=== PATIENT | female | born 1945 | race Caucasian/White ===

== ENCOUNTER 2016-06-25 04:15 | Inpatient (IN) | payer OTHER, MEDICARE ==
[2016-06-25] VITALS (20 sets, daily range): BP systolic 129–214; BP diastolic 70–100; PULSE 86–128; RESP 16–37; TEMP 98.5; O2SAT 82–100
[~2016-06-25] VITALS: Ht 170.2 cm; Wt 81.6 kg
[~2016-06-25 04:15] MED LIST: ASPI81TA11 PO; CLON0.1T PO; ESTR1.25 PO; METO25TA3 PO; NIFE15TA PO; PRED2.5T PO; UMEC1AER INH
[2016-06-25] MEDS ORDERED: SODIUM CHLORIDE 0.9% FLUSH 10 ML FLUSH IVF PRN (04:30)
[2016-06-25] MEDS: RESP: ALBUTEROL 2.5 MG/IPRATROPIUM 0.5 MG NEB (SCH) INH (04:41)
[2016-06-25 05:06] LABS: AUTOMATED NEUTROPHIL # 8.6 TH/MM3 (1.8-7.7); BASOPHIL # 0.2 TH/MM3 (0-0.2); BASOPHIL % 1.4 % (0.0-2.0); EOSINOPHIL # 0.1 TH/MM3 (0-0.4); EOSINOPHIL % 0.4 % (0.0-4.0); HEMATOCRIT 48.1 % (35.0-46.0); HEMO FLAGS DIFF FINAL; LYMPH % 19.2 % (9.0-44.0); LYMPHOCYTE # 2.4 TH/MM3 (1.0-4.8); MEAN CELL VOLUME 91.9 FL (80.0-100.0); MEAN CORPUSCULAR HEMOGLOBIN 31.7 PG (27.0-34.0); MEAN CORPUSCULAR HGB CONC 34.5 % (32.0-36.0); MONO % 9.1 % (0.0-8.0); NEUT % 69.9 % (16.0-70.0); PLATELET COUNT 266 TH/MM3 (150-450); RED BLOOD COUNT 5.23 MIL/MM3 (4.00-5.30); RED CELL DISTRIBUTION WIDTH 13.7 % (11.6-17.2); WHITE BLOOD COUNT 12.3 TH/MM3 (4.0-11.0)
[2016-06-25 05:12] LABS: APTT (PATIENT) 26.9 SEC (24.3-30.1); PROTHROMBIN TIME - PATIENT 10.7 SEC (9.8-11.6)
[2016-06-25 05:26] LABS: ALKALINE PHOSPHATASE 123 U/L (45-117); ALT (GPT) 19 U/L (10-53); ANION GAP 9 MEQ/L (5-15); AST (GOT) 20 U/L (15-37); BLOOD UREA NITROGEN 10 MG/DL (7-18); CHLORIDE 94 MEQ/L (98-107); GLOMERULAR FILTRATION RATE 97 ML/MIN (>89); MAGNESIUM 1.8 MG/DL (1.5-2.5); SODIUM (NA) 132 MEQ/L (136-145); TOTAL BILIRUBIN ADULT 0.5 MG/DL (0.2-1.0)
[2016-06-25 05:27] LABS: CREATINE KINASE 64 U/L (26-192); POTASSIUM 3.7 MEQ/L (3.5-5.1)
--- NOTE | 2016-06-25 05:45 | RADRPT ---
EXAM DATE/TIME: 06/25/2016 05:11 [place] COMPARISON: CHEST SINGLE AP, February 19, 2016, 6:26. INDICATIONS : Short of breath. MEDICAL HISTORY : None. SURGICAL HISTORY : None. ENCOUNTER: Initial ACUITY: 1 day PAIN SCORE: 8/10 LOCATION: Bilateral chest FINDINGS: A single view of the chest demonstrates hyperinflation with bibasilar densities. The cardiomediastina l contours are unremarkable. Osseous structures are intact. CONCLUSION: 1. Hyperinflation which can be seen with COPD. 2. Bibasilar densities likely atelectasis. Mike Lopez MD on June 25, 2016 at 5:42 Board Certified Radiologist. This report was verified electronically.
[2016-06-25] MEDS ORDERED: SODIUM CHLOR 0.9% 1000 ML INJ 1,000 ML IV ONE ×2 (06:04)
[2016-06-25] MEDS ORDERED: SODIUM CHLOR 0.9% 1000 ML INJ 700 ML IV ONE (06:04)
--- NOTE | 2016-06-25 06:05 | PD ---
HPI Chief Complaint: Respiratory Symptoms Time Seen by Provider: 04:22 Travel History International Travel<30 days: No Contact w/Intl Traveler<30days: No Traveled to known affect area: No History of Present Illness HPI The patient is a 71 year old female who presents to the [facility] emergency department with a history of progressive shortness of breath that began this past week. She reports that she has been caring for her grandchildren and doing a lot of activities with them. She reports that over the last week she began to have a cough that was intermittently productive of yellow sputum, shortness of breath with exertion that became worse and was at rest today. The patient was brought in by ambulance services. The patient was given 2 nebulizer treatments prior to arrival and Solu-Medrol 125 mg IV. The patient's room air saturation after arrival was 82% at its lowest. The patient reports feeling improved on 2 L nasal cannula O2. The patient reports that over this last week she has had intermittent vomiting and diarrhea. She reports that her stool is been brown in color. She denies any sick contacts or recent antibiotic use. She does have a history of chronic immunosuppression related to chronically taking prednisone for polymyalgia rheumatica. The patient denies having any nebulizer machine or rescue inhaler at home. She reports that she is on Anoro daily. The patient denies any recent fevers, neck pain, chest pain, abdominal pain, urinary symptoms, or neurologic symptoms. [facility] Past Medical History Narrative Medical The patient's past medical history is significant for COPD, history of SVT, history of hypertension, polymyalgia rheumatica, tobacco abuse, history of an admission in January 2016 related to acute transaminitis and a urinary tract infection. Asthma: Yes Autoimmune Disease: Yes (POLYMALGIA RHEUMATICA) Cancer: No Cardiovascular Problems: Yes Congestive Heart Failure: No COPD: Yes Coronary Artery Disease: No Diabetes: No Diminished Hearing: No Endocrine: No Gastrointestinal Disorders: Yes Genitourinary: Yes Hypertension: Yes Immune Disorder: Yes Implanted Vascular Access Dvce: No Musculoskeletal: Yes Neurologic: No Psychiatric: No Reproductive: No Respiratory: Yes Immunizations Current: Yes Thyroid Disease: No Tetanus Vaccination: < 5 Years Past Surgical History Narrative Surgical The patient's past surgical history is significant for cholecystectomy, hysterectomy, partial colon resection Abdominal Surgery: Yes (GALLBLADDER, RESECTION OF COLON) Cholecystectomy: Yes Gynecologic Surgery: Yes (HYSTERECTOMY) Hysterectomy: Yes Other Surgery: Yes Social History Alcohol Use: No Tobacco Use: Yes (1-2 PPD) Substance Use: No Allergies-Medications (Allergen,Severity, Reaction): Coded Allergies: Sulfa (Verified Allergy, Severe, Anaphylaxis, 02/19/16) Morphine (Verified Adverse Reaction, Severe, Hallucinations, 02/19/16) *MDRO Multi-Drug Resistant Organism (Verified Adverse Reaction, Unknown, 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) Reported Meds & Prescriptions Reported Meds & Active Scripts Active Nifedical XL (Nifedipine) 60 Mg Tab 60 Mg PO DAILY Aspirin EC (Aspirin) 81 Mg Tabdr 81 Mg PO DAILY Reported Anoro Ellipta Inh (Umeclidinium/Vilanterol) 62.5-25 Mcg/Act Aero 1 Puff INH DAILY Metoprolol Tartrate 25 Mg Tab 25 Mg PO Q12HR Prednisone 2.5 Mg Tab 2.5 Mg PO QID Premarin (Estrogens Conjugated) 1.25 Mg Tab 2.1 Mg PO DAILY Clonidine (Clonidine HCl) 0.1 Mg Tab 0.1 Mg PO TID Review of Systems Except as stated in HPI: all other systems reviewed are Neg General / Constitutional: No: Fever Eyes: No: Visual changes HENT: Positive: Congestion, No: Headaches Cardiovascular: Positive: Chest Pain or Discomfort (chest tightness), Dyspnea on exertion Respiratory: Positive: Cough, Shortness of Breath, Wheezing, No: Orthopnea Gastrointestinal: Positive: Nausea, Vomiting, Diarrhea, Changes in Bowel Habits , No: Abdominal Pain, Hematemesis, Hematochezia, Indigestion, Loss of Appetite Genitourinary: No: Dysuria Musculoskeletal: No: Pain Skin: No Rash Neurologic: No: Weakness Psychiatric: No: Depression Endocrine: No: Polydipsia Hematologic/Lymphatic: No: Easy Bruising Physical Exam Narrative General: The patient is a well-developed well-nourished female with accessory muscle use and conversational dyspnea noted on arrival. Head and Neck exam: Head is normocephalic atraumatic. Eyes: EOMI, pupils are equal round and reactive to light. Nose: Midline septum with pink mucous membranes Mouth: Dentition unremarkable. Moist mucus membranes. Posterior oropharynx is not erythematous. No tonsillar hypertrophy. Uvula midline. Airway patent. Neck: No palpable lymphadenopathy. No nuchal rigidity. No thyromegaly. Cardiovascular: Sinus tachycardia in the 120s without murmurs, gallops, or rubs. No pulse deficit to the extremities and simultaneous auscultation and palpation of her radial artery. Lungs: Expiratory wheezes audible throughout bilateral lung encarnacion, no rhonchi, no crackles are audible. Diminished air movement is noted in bilateral lower lung encarnacion. No tripoding. The patient has conversational dyspnea noted. Abdomen: Soft, without tenderness to palpation in all 4 quadrants of the abdomen. No guarding, rebound, or rigidity. Normal bowel sounds are audible. No tenderness on palpation of McBurney's point. Negative Webb's sign. Extremities: No clubbing, cyanosis, or edema. 2+ pulses in all 4 extremities. No calf tenderness on palpation. Back: No spinous process tenderness to palpation. No costovertebral angle tenderness to palpation. Neurologic Exam: Grossly nonfocal. Skin Exam: No rash noted. Intact skin that is warm and dry. Data Data Last Documented VS Vital Signs Date Time Temp Pulse Resp B/P Pulse Ox O2 Delivery O2 Flow Rate FiO2 06/25/16 05:48 96 BiPAP 06/25/16 05:47 120 32 197/96 06/25/16 05:41 40 06/25/16 04:40 4.00 06/25/16 04:17 98.5 Orders Complete Blood Count With Diff (06/25/16 04:25) Comprehensive Metabolic Panel (06/25/16 04:25) B-Type Natriuretic Peptide (06/25/16 04:25) D-Dimer (06/25/16 04:25) Act Partial Throm Time (Ptt) (06/25/16 04:25) Prothrombin Time / Inr (Pt) (06/25/16 04:25) Magnesium (Mg) (06/25/16 04:25) Ckmb (Isoenzyme) Profile (06/25/16 04:25) Troponin I (06/25/16 04:25) Arterial Blood Gas (Abg) (06/25/16 04:25) Urinalysis - C+S If Indicated (06/25/16 04:25) Blood Culture (06/25/16 04:25) Iv Access Insert/Monitor (06/25/16 04:25) Ecg Monitoring (06/25/16 04:25) Oximetry (06/25/16 04:25) Oxygen Administration (06/25/16 04:25) Chest, Single Ap (06/25/16 04:25) Sodium Chloride 0.9% Flush (Ns Flush) (06/25/16 04:30) Albuterol-Ipratropium Neb (Duoneb Neb) (06/25/16 04:30) Lactic Acid Sepsis Protocol (06/25/16 04:25) Resp Bipap / Cpap Non Invas Vt (06/25/16 ) Sodium Chlor 0.9% 1000 Ml Inj (Ns 1000 M (06/25/16 06:04) Sodium Chlor 0.9% 1000 Ml Inj (Ns 1000 M (06/25/16 06:04) Sodium Chlor 0.9% 1000 Ml Inj (Ns 1000 M (06/25/16 06:04) Ceftriaxone Inj (Rocephin Inj) (06/25/16 06:15) Azithromycin Inj (Zithromax Inj) (06/25/16 06:15) Admit Order (Ed Use Only) (06/25/16 06:50) Labs Laboratory Tests Test 06/25/16 06/25/16 04:35 04:45 White Blood Count 12.3 TH/MM3 Red Blood Count 5.23 MIL/MM3 Hemoglobin 16.6 GM/DL Hematocrit 48.1 % Mean Corpuscular Volume 91.9 FL Mean Corpuscular Hemoglobin 31.7 PG Mean Corpuscular Hemoglobin 34.5 % Concent Red Cell Distribution Width 13.7 % Platelet Count 266 TH/MM3 Mean Platelet Volume 7.6 FL Neutrophils (%) (Auto) 69.9 % Lymphocytes (%) (Auto) 19.2 % Monocytes (%) (Auto) 9.1 % Eosinophils (%) (Auto) 0.4 % Basophils (%) (Auto) 1.4 % Neutrophils # (Auto) 8.6 TH/MM3 Lymphocytes # (Auto) 2.4 TH/MM3 Monocytes # (Auto) 1.1 TH/MM3 Eosinophils # (Auto) 0.1 TH/MM3 Basophils # (Auto) 0.2 TH/MM3 CBC Comment DIFF FINAL Differential Comment Prothrombin Time 10.7 SEC Prothromb Time International 1.0 RATIO Ratio Activated Partial 26.9 SEC Thromboplast Time D-Dimer Quantitative (PE/DVT) 0.35 MG/L FEU Sodium Level 132 MEQ/L Potassium Level 3.7 MEQ/L Chloride Level 94 MEQ/L Carbon Dioxide Level 29.0 MEQ/L Anion Gap 9 MEQ/L Blood Urea Nitrogen 10 MG/DL Creatinine 0.61 MG/DL Estimat Glomerular Filtration 97 ML/MIN Rate Random Glucose 146 MG/DL Lactic Acid Level 1.3 mmol/L Calcium Level 9.1 MG/DL Magnesium Level 1.8 MG/DL Total Bilirubin 0.5 MG/DL Aspartate Amino Transf 20 U/L (AST/SGOT) Alanine Aminotransferase 19 U/L (ALT/SGPT) Alkaline Phosphatase 123 U/L Total Creatine Kinase 64 U/L Troponin I LESS THAN 0.02 NG/ML B-Type Natriuretic Peptide 41 PG/ML Total Protein 8.6 GM/DL Albumin 4.0 GM/DL Blood Gas Puncture Site RT RADIAL Blood Gas Patient Temperature 98.6 Blood Gas HCO3 29 mmol/L Blood Gas Base Excess 3.3 mmol/L Blood Gas Oxygen Saturation 96 % Arterial Blood pH 7.30 Arterial Blood Partial 61 mmHg Pressure CO2 Arterial Blood Partial 141 mmHG Pressure O2 Arterial Blood Oxygen Content 22.5 Vol % Arterial Blood 1.5 % Carboxyhemoglobin Arterial Blood Methemoglobin 0.8 % Blood Gas Hemoglobin 16.5 G/DL Oxygen Delivery Device NASAL CANNULA Blood Gas Liter Flow 4 L/M MDM Medical Decision Making Medical Screen Exam Complete: Yes Emergency Medical Condition: Yes Medical Record Reviewed: Yes Interpretation(s) Last Impressions Chest X-Ray 06/25/16 0425 Signed Impressions: Service Date/Time: Saturday, June 25, 2016 05:11 - CONCLUSION: 1. Hyperinflation which can be seen with COPD. 2. Bibasilar densities likely atelectasis. Mike Lopez MD Differential Diagnosis COPD exacerbation, versus pneumonia, versus congestive heart failure, versus acute coronary syndrome Narrative Course During the course of the patients emergency department visit, the patients history, examination, and differential diagnosis were reviewed with the patient. The patient had IV access obtained and blood work sent for analysis. The patient was placed on a case monitor with oximetry and blood pressure monitoring. An EKG was ordered. The EKG on arrival shows a sinus tachycardia with a short PA interval, nonspecific ST-T wave abnormalities, no acute ST segment elevation is noted, T waves are inverted in V1. The patient had an ABG ordered. The patient was provided DuoNeb 3. The patients laboratory studies were reviewed and remarkable for an ABG that shows a pH of 7.3, PCO2 60.5 consistent with a COPD exacerbation, PO2 141, bicarbonate 29.1, on 4 L nasal cannula O2. White count 12.3, hemoglobin 16.6, platelets 266, 9.1 monocytes, CMP is remarkable for sodium of 132, chloride 94, glucose 146, alkaline phosphatase 123, CPK 64, troponin I less than 0.02, BNP 41 , lactic acid 1.3. D-dimer is 0.35 decreased the likelihood of pulmonary embolism, PT PTT unremarkable. Radiology studies were reviewed and remarkable for a chest x-ray that shows hyperinflation consistent with COPD, bibasilar densities likely atelectasis. The patient on reexamination after nebulizer treatments continues to have expiratory wheezes and increased work of breathing. The patient was started on BiPAP. The patient was given Rocephin 1 g IV, Zithromax 500 IV, after blood cultures 2 were sent. The patients results were discussed with the patient, including the plan of care. I explained that further testing and/ or monitoring is indicated based on the patients history, examination, and/ or laboratory findings. Therefore, I recommended admission for additional evaluation. The patient expressed understanding and was agreeable with this plan. The patient was admitted to the hospital in guarded condition and [facility] Narrative Aggregate critical care time was 36 minutes. Time to perform other separately billable procedures was not included in the critical care time. My time did not include minutes spent treating any other patients simultaneously or on activities that did not directly contribute to the patient's treatment. The services I provided to this patient were to treat and/or prevent clinically significant deterioration that could result in: Respiratory failure, versus cardiovascular collapse, versus cardiac arrhythmia I provided critical care services requiring my management, as noted below: Chart data review, documentation time, medication orders and management, vital sign assessments/reviewing monitor data, ordering and reviewing lab tests, ordering and interpreting/reviewing x-rays and diagnostic studies, care of the patient and discussion of the patient with the admitting physicians. Sepsis Criteria SIRS Criteria (2 or more): Heart rate over 90, RR > 20 or PaCO2 < 32, WBC > 77299, < 4000 or > 10% bands Sepsis Criteria (SIRS+source): Infect source susp/known Criteria Outcome: Meets SIRS criteria, Meets sepsis criteria Physician Communication Physician Communication The patient's case was discussed with Dr. Salas who did agree to admit the patient for further evaluation and treatment at this time. Diagnosis Primary Impression: COPD with acute exacerbation Additional Impression: Hypoxemia Admitting Information Admitting Physician Requests: Admit Elizabeth Rosario MD Jun 25, 2016 06:04
[2016-06-25] MEDS ORDERED: AZITHROMYCIN INJ 500 MG in SODIUM CHLOR 0.9% 250 ML INJ 250 ML IV ONE (06:15)
[2016-06-25] MEDS ORDERED: cefTRIAXone INJ 1,000 MG in SODIUM CHLORIDE 0.9% INJ 100 ML IV ONE (06:15)
[2016-06-25] MEDS ORDERED: ACETAMINOPHEN 325 MG TAB PO PRN (07:00)
[2016-06-25] MEDS ORDERED: BISACODYL 10 MG SUPP PR PRN (07:00)
[2016-06-25] MEDS ORDERED: RESP: ALBUTEROL 2.5 MG/IPRATROPIUM 0.5 MG NEB (PRN) NEB (07:00)
[2016-06-25] MEDS ORDERED: SODIUM CHLORIDE 0.9% FLUSH 10 ML FLUSH IV FLUSH PRN (07:00)
[2016-06-25] MEDS ORDERED: ACETAMINOPHEN/HYDROcodone 325 MG/5 MG TAB PO PRN (07:00)
[2016-06-25 07:02] LABS: BLOOD GAS BASE EXCESS 3.3 mmol/L (-2-2); BLOOD GAS CARBOXYHEMOGLOBIN 1.5 % (0-4); BLOOD GAS HCO3 29 mmol/L (22-26); BLOOD GAS METHEMOGLOBIN 0.8 % (0-2); BLOOD GAS O2 HGB SATURATION 96 % (90-100); BLOOD GAS OXYGEN CONTENT 22.5 Vol % (12.0-20.0); BLOOD GAS PCO2 61 mmHg (38-42); BLOOD GAS PO2 141 mmHG (61-120); BLOOD GAS TOTAL HGB 16.5 G/DL (12.0-16.0); TEMP CORR TO 98.6
[2016-06-25 07:03] LABS: CRITICAL VALUE YES; DRAW SITE RT RADIAL; LITER FLOW 4 L/M; NUMBER OF ARTERIAL PUNCTURES 1; OXYGEN DEVICE NASAL CANNULA; STAT YES; ULNAR PULSE PRESENT
[2016-06-25 07:04] LABS: BLOOD GAS BASE EXCESS 1.7 mmol/L (-2-2); BLOOD GAS CARBOXYHEMOGLOBIN 1.3 % (0-4); BLOOD GAS HCO3 27 mmol/L (22-26); BLOOD GAS METHEMOGLOBIN 0.8 % (0-2); BLOOD GAS O2 HGB SATURATION 96 % (90-100); BLOOD GAS OXYGEN CONTENT 20.9 Vol % (12.0-20.0); BLOOD GAS PCO2 57 mmHg (38-42); BLOOD GAS PO2 106 mmHG (61-120); BLOOD GAS TOTAL HGB 15.5 G/DL (12.0-16.0); TEMP CORR TO 98.6
[2016-06-25 07:08] LABS: OXYGEN DEVICE BiPAP; VENT SETTINGS IPAP10/EPAP5
[2016-06-25 07:09] LABS: DRAW SITE RT BRACHIAL; FIO2 40 %; NUMBER OF ARTERIAL PUNCTURES 2; STAT YES
[2016-06-25] MEDS ORDERED: RESP: ALBUTEROL 2.5 MG/IPRATROPIUM 0.5 MG NEB (SCH) NEB (08:00)
[2016-06-25] MEDS: NIFEdipine 60 MG SUSTAINED RELEASE TAB PO SCH (09:00)
[2016-06-25] MEDS: BUDESONIDE-FORMOTEROL 160/4.5 MCG INHALER INH SCH ×2 (09:00→21:00)
[2016-06-25] MEDS: SODIUM CHLORIDE 0.9% FLUSH 10 ML FLUSH IV FLUSH SCH ×2 (09:00→21:00)
[2016-06-25] MEDS: ESTROGENS CONJUGATED 1.25 MG TAB PO SCH (09:00)
[2016-06-25] MEDS: cloNIDine HCL 0.1 MG TAB PO SCH ×3 (09:00→18:01)
[2016-06-25] MEDS: METOPROLOL TARTRATE 25 MG TAB PO SCH ×2 (09:00→21:18)
[2016-06-25] MEDS: ASPIRIN EC 81 MG TABEC PO SCH (09:00)
--- NOTE | 2016-06-25 09:07 | HHI.HP ---
[facility] Service [place] [facility] Primary Care Physician Neena Pena MD Admission Diagnosis COPD exacerbation Diagnoses: Chief Complaint: Shortness of breathing Travel History International Travel<30 Days: No Contact w/Intl Traveler <30 Da: No Traveled to Known Affected Are: No History of Present Illness This is a 71-year-old female with past medical history of COPD and tobacco dependence who presented with shortness of breathing for the past 2 days. Patient stated last 2 days she gradually had increased shortness of breathing along with a productive cough sputum yellow in color. She stated that she had increased activity with her grandchildren and which her shortness of breathing has worsened. Denies any fevers or chills. Also stated she had emesis that have resolved. Patient stated that at her baseline she is able to walk about half a mile before she gets shortness of breathing. She smokes about half a pack per day for the past 40 years. Patient stated that she is not on any oxygen at home. Patient currently on BiPAP at 02/03 and she stated that it is helping her breathing. Review of Systems Constitutional: DENIES: Diaphoretic episodes, Fatigue, Fever, Weight gain, Weight loss, Chills, Dizziness, Change in appetite, Night Sweats Endocrine: DENIES: Abnorml menstrual pattern, Heat/cold intolerance, Polydipsia , Polyuria, Polyphagia Eyes: DENIES: Blurred vision, Diplopia, Eye inflammation, Eye pain, Vision loss , Photosensitivity, Double Vision Ears, nose, mouth, throat: DENIES: Tinnitus, Hearing loss, Vertigo, Nasal discharge, Oral lesions, Throat pain, Hoarseness, Ear Pain, Running Nose, Epistaxis, Sinus Pain, Toothache, Odynophagia Respiratory: COMPLAINS OF: Cough, Wheezing, Sputum production, Shortness of breath, DENIES: Apneas, Snoring, Hemoptysis Cardiovascular: DENIES: Chest pain, Palpitations, Syncope, Dyspnea on Exertion , PND, Lower Extremity Edema, Orthopnea, Claudication Gastrointestinal: DENIES: Abdominal pain, Black stools, Bloody stools, Constipation, Diarrhea, Nausea, Vomiting, Difficulty Swallowing, Anorexia Genitourinary: DENIES: Abnormal vaginal bleeding, Dysmenorrhea, Dyspareunia, Sexual dysfunction, Urinary frequency, Urinary incontinence, Urgency, Hematuria , Dysuria, Nocturia, Vaginal discharge Musculoskeletal: DENIES: Joint pain, Muscle aches, Stiffness, Joint Swelling, Back pain, Neck pain Integumentary: DENIES: Abnormal pigmentation, Pruritus, Rash, Nail changes, Breast masses, Breast skin changes, Nipple discharge Hematologic/lymphatic: DENIES: Bruising, Lymphadenopathy Immunologic/allergic: DENIES: Eczema, Urticaria Neurologic: DENIES: Abnormal gait, Headache, Localized weakness, Paresthesias, Seizures, Speech Problems, Tremor, Poor Balance Psychiatric: DENIES: Anxiety, Confusion, Mood changes, Depression, Hallucinations, Agitation, Suicidal Ideation, Homicidal Ideation, Delusions Past Family Social History Past Medical History COPD, hypertension, history of acute hepatitis refused workup, right upper lobe nodule, paroxysmal SVT, tobacco dependence Past Surgical History Cholecystectomy, hysterectomy, colon resection Reported Medications Nifedical XL (Nifedipine) 60 Mg Tab 60 Mg PO DAILY Aspirin EC (Aspirin) 81 Mg Tabdr 81 Mg PO DAILY Anoro Ellipta Inh (Umeclidinium/Vilanterol) 62.5-25 Mcg/Act Aero 1 Puff INH DAILY Metoprolol Tartrate 25 Mg Tab 25 Mg PO Q12HR Prednisone 2.5 Mg Tab 2.5 Mg PO QID Premarin (Estrogens Conjugated) 1.25 Mg Tab 2.1 Mg PO DAILY Clonidine (Clonidine HCl) 0.1 Mg Tab 0.1 Mg PO TID Allergies: Coded Allergies: Sulfa (Verified Allergy, Severe, Anaphylaxis, 02/19/16) Morphine (Verified Adverse Reaction, Severe, Hallucinations, 02/19/16) *MDRO Multi-Drug Resistant Organism (Verified Adverse Reaction, Unknown, 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 Ordered Medications Current Medications Sodium Chloride (NS Flush) 2 ml UNSCH PRN IVF FLUSH AFTER USING IV ACCESS; Start 06/25/16 at 04:30; Stop 06/25/16 at 08:09; Status DC Albuterol/ Ipratropium 1 ampule 1 ampule Q15M INH Last administered on t 04:41; Start 06/25/16 at 04:30; Stop 06/25/16 at 05:01; Status DC Sodium Chloride 1,000 ml @ 1,000 mls/hr Q1H ONCE IV Last administered on 06:38; Start 06/25/16 at 06:04; Stop 06/25/16 at 07:03; Status DC Sodium Chloride 1,000 ml @ 1,000 mls/hr Q1H ONCE IV Last administered on 07:20; Start 06/25/16 at 06:04; Stop 06/25/16 at 07:03; Status DC Sodium Chloride 700 ml @ 1,000 mls/hr Q42M ONCE IV ; Start 06/25/16 at 06:04; Stop 06/25/16 at 06:45; Status DC Ceftriaxone Sodium 1000 mg/ Sodium Chloride 100 ml @ 200 mls/hr ONCE ONCE IV Last administered on 06/25/16 06:38; Start 06/25/16 at 06:15; Stop 06/25/16 at 06:44; Status DC Azithromycin 500 mg/Sodium Chloride 250 ml @ 250 mls/hr ONCE ONCE IV Last administered on 06/25/16 07:21; Start 06/25/16 at 06:15; Stop 06/25/16 at 07:14 ; Status DC Ceftriaxone Sodium 1000 mg/ Sodium Chloride 100 ml @ 200 mls/hr Q24H IV ; Start 06/26/16 at 06:00 Azithromycin/ Sodium Chloride (Zithromax Inj/ NS 250 ml Inj) 250 ml @ 250 mls/ hr Q24H IV ; Start 06/26/16 at 07:00 Methylprednisolone Sodium Succinate (SoluMEDROL INJ) 40 mg Q6HR IV PUSH ; Start 06/25/16 at 12:00; Stop 06/25/16 at 12:00; Status DC Albuterol/ Ipratropium (Duoneb Neb) 1 ampule Q4HR WHILE AWAKE NEB NEB Last administered on 06/25/16 08:41; Start 06/25/16 at 08:00; Stop 06/25/16 at 08:58 ; Status DC Albuterol/ Ipratropium (Duoneb Neb) 1 ampule Q2HR NEB PRN NEB SOB/WHEEZING; Start 06/25/16 at 07:00 Budesonide/ Formoterol Fumarate (Symbicort 160-4.5 Inh) 2 puff Q12HR INH ; Start 06/25/16 at 09:00 Sodium Chloride (NS Flush) 2 ml UNSCH PRN IV FLUSH FLUSH AFTER USING IV ACCESS ; Start 06/25/16 at 07:00 Sodium Chloride (NS Flush) 2 ml BID IV FLUSH ; Start 06/25/16 at 09:00 Ondansetron HCl (Zofran Inj) 4 mg Q6H PRN IVP NAUSEA OR VOMITING; Start at 07:00 Bisacodyl (Dulcolax Supp) 10 mg DAILY PRN [place] CONSTIPATION; Start 06/25/16 at 07 :00 Acetaminophen (Tylenol) 650 mg Q6H PRN PO FEVER/PAIN SCALE 1 TO 2; Start at 07:00 Acetaminophen/ Hydrocodone Bitart ([place] 5-325 Mg) 1 tab Q4H PRN PO PAIN SCALE 3 TO 5; Start 06/25/16 at 07:00 Acetaminophen/ Hydrocodone Bitart ([place] 10-325 Mg) 1 tab Q4H PRN PO PAIN 6-10 ; Start 06/25/16 at 07:00 Aspirin (Ecotrin Ec) 81 mg DAILY PO ; Start 06/25/16 at 09:00 Clonidine (Catapres) 0.1 mg TID PO ; Start 06/25/16 at 09:00 Estrogens Conjugated (Premarin) 2.1 mg DAILY PO ; Start 06/25/16 at 09:00; Status UNV Metoprolol Tartrate (Lopressor) 25 mg Q12HR PO ; Start 06/25/16 at 09:00 Nifedipine (Procardia Xl) 60 mg DAILY PO ; Start 06/25/16 at 09:00 Albuterol/ Ipratropium (Duoneb Neb) 1 ampule Q4HR NEB NEB ; Start 06/25/16 at 12:00; Status UNV Methylprednisolone Sodium Succinate (SoluMEDROL INJ) 60 mg Q6HR IV PUSH ; Start 06/25/16 at 12:00; Status UNV Family History Denies any family history of cardiovascular disease, diabetes, or cancer. Social History Smoked about one half pack per day for the past 40 years. Denies any alcohol illicit drug use. Physical Exam Vital Signs Vital Signs Date Time Temp Pulse Resp B/P Pulse Ox O2 Delivery O2 Flow Rate FiO2 06/25/16 08:43 94 Nasal Cannula 3.00 06/25/16 08:19 109 28 134/70 96 BiPAP 40 06/25/16 07:28 40 06/25/16 06:59 110 30 158/87 97 BiPAP 40 06/25/16 06:53 98 06/25/16 05:48 96 BiPAP 06/25/16 05:47 120 32 197/96 06/25/16 05:41 97 40 06/25/16 04:40 96 Nasal Cannula 4.00 06/25/16 04:24 96 Nasal Cannula 4 06/25/16 04:17 98.5 128 37 214/100 82 Physical Exam GENERAL: This is a well-nourished, well-developed patient, in no apparent distress. SKIN: No rashes, ecchymoses or lesions. Cool and dry. HEAD: Atraumatic. Normocephalic. No temporal or scalp tenderness. EYES: Pupils equal round and reactive. Extraocular motions intact. No scleral icterus. No injection or drainage. ENT: Nose without bleeding, purulent drainage or septal hematoma. Throat without erythema, tonsillar hypertrophy or exudate. Uvula midline. Airway patent. NECK: Trachea midline. No JVD or lymphadenopathy. Supple, nontender, no meningeal signs. CARDIOVASCULAR: Regular rate and rhythm without murmurs, gallops, or rubs. RESPIRATORY: Positive for diffuse rhonchi. Positive for diffuse inspiratory wheezing. GASTROINTESTINAL: Abdomen soft, non-tender, nondistended. No hepato-splenomegaly , or palpable masses. No guarding. MUSCULOSKELETAL: Extremities without clubbing, cyanosis, or edema. No joint tenderness, effusion, or edema noted. No calf tenderness. Negative Homans sign bilaterally. NEUROLOGICAL: Awake and alert. Cranial nerves II through XII intact. Motor and sensory grossly within normal limits. Five out of 5 muscle strength in all muscle groups. Normal speech. Laboratory Laboratory Tests Test 06/25/16 06/25/16 06/25/16 04:35 04:45 06:44 White Blood Count 12.3 Red Blood Count 5.23 Hemoglobin 16.6 Hematocrit 48.1 Mean Corpuscular Volume 91.9 Mean Corpuscular Hemoglobin 31.7 Mean Corpuscular Hemoglobin 34.5 Concent Red Cell Distribution Width 13.7 Platelet Count 266 Mean Platelet Volume 7.6 Neutrophils (%) (Auto) 69.9 Lymphocytes (%) (Auto) 19.2 Monocytes (%) (Auto) 9.1 Eosinophils (%) (Auto) 0.4 Basophils (%) (Auto) 1.4 Neutrophils # (Auto) 8.6 Lymphocytes # (Auto) 2.4 Monocytes # (Auto) 1.1 Eosinophils # (Auto) 0.1 Basophils # (Auto) 0.2 CBC Comment DIFF FINAL Differential Comment Prothrombin Time 10.7 Prothromb Time International 1.0 Ratio Activated Partial 26.9 Thromboplast Time D-Dimer Quantitative (PE/DVT) 0.35 Sodium Level 132 Potassium Level 3.7 Chloride Level 94 Carbon Dioxide Level 29.0 Anion Gap 9 Blood Urea Nitrogen 10 Creatinine 0.61 Estimat Glomerular Filtration 97 Rate Random Glucose 146 Lactic Acid Level 1.3 Calcium Level 9.1 Magnesium Level 1.8 Total Bilirubin 0.5 Aspartate Amino Transf 20 (AST/SGOT) Alanine Aminotransferase 19 (ALT/SGPT) Alkaline Phosphatase 123 Total Creatine Kinase 64 Troponin I LESS THAN 0.02 B-Type Natriuretic Peptide 41 Total Protein 8.6 Albumin 4.0 Blood Gas Puncture Site RT RADIAL RT BRACHIAL Blood Gas Patient Temperature 98.6 98.6 Blood Gas HCO3 29 27 Blood Gas Base Excess 3.3 1.7 Blood Gas Oxygen Saturation 96 96 Arterial Blood pH 7.30 7.31 Arterial Blood Partial 61 57 Pressure CO2 Arterial Blood Partial 141 106 Pressure O2 Arterial Blood Oxygen Content 22.5 20.9 Arterial Blood 1.5 1.3 Carboxyhemoglobin Arterial Blood Methemoglobin 0.8 0.8 Blood Gas Hemoglobin 16.5 15.5 Oxygen Delivery Device NASAL CANNULA BiPAP Blood Gas Liter Flow 4 Blood Gas Ventilator Setting [id number] Blood Gas Inspired Oxygen 40 Date/Time Procedure Status Source Growth 06/25/16 04:48 Aerobic Blood Culture Received Blood Peripheral Pending 06/25/16 04:48 Anaerobic Blood Culture Received Blood Peripheral Pending Result Diagram: 06/25/1643406/[id number]/[id number] Imaging Last Impressions Chest X-Ray 06/25/16424 Signed Impressions: Service Date/Time: Saturday, June 25, 2016 05:11 - CONCLUSION: 1. Hyperinflation which can be seen with COPD. 2. Bibasilar densities likely atelectasis. Mike Lopez MD Assessment and Plan Assessment and Plan 71-year-old female with COPD and tobacco dependence who presented with shortness of breathing Acute respiratory failure with hypoxia -Secondary to COPD exacerbation. -Chest x-ray negative for any pneumonia. Labs reviewed. Patient clinically improving on BiPAP. -Continue with BiPAP. -We'll treat patient with scheduled DuoNeb nebs every 4 hours with albuterol when necessary every hrs PRN, Solu-Medrol, Rocephin and azithromycin. -Smoking cessation. -Continue to monitor patient clinically. Tobacco dependence -Smoking cessation. Paroxysmal SVT/hypertension/menopausal symptoms -Resume home medication. DVT prophylaxis -SCDs Code Status full Discussed Condition With patient Physician Certification 2 Midnight Certification Type: Admission for Inpatient Services Order for Inpatient Services The services are ordered in accordance with Medicare regulations or non- Medicare payer requirements, as applicable. In the case of services not specified as inpatient-only, they are appropriately provided as inpatient services in accordance with the 2-midnight benchmark. Estimated LOS (days): 3 3 days is the estimated time the patient will need to remain in the hospital, assuming treatment plan goals are met and no additional complications. Post-Hospital Plan: Danielle Dennis MD Jun 25, 2016 09:06
[2016-06-25 09:31] LABS: BACTERIA, URINE RARE /hpf; BLOOD, URINE MOD (NEG); COMMENT (UR) CULT NOT INDICATED; CULTURE IF INDICATED CULT NOT INDICATED; GLUCOSE,URINE NEG (NEG); KETONE, URINE 10 mg/dL (NEG); MUCUS URINE FEW /lpf (OCC); NITRITE,URINE NEG (NEG); PH, URINE 6.5 (5.0-8.5); SQUAMOUS EPITHELIAL CELL URINE 1 /hpf (0-5); URINE COLOR YELLOW (YELLW/STRAW)
[2016-06-25] MEDS: methylPREDNISolone SOD SUCC 40 MG/1 ML VIAL IV PUSH SCH ×2 (11:17→18:01)
[2016-06-25] MEDS ORDERED: methylPREDNISolone SOD SUCC 40 MG/1 ML VIAL IV PUSH SCH (12:00)
[2016-06-25] MEDS: RESP: ALBUTEROL 2.5 MG/IPRATROPIUM 0.5 MG NEB (SCH) NEB ×4 (12:30→23:46)
--- NOTE | 2016-06-25 14:48 | EKG ---
Date Performed: 06/25/2016 Time Performed: 04:10:29 PTAGE: 71 years EKG: SINUS TACHYCARDIA WITH SHORT VT INTERVAL NONSPECIFIC ST & T-WAVE ABNORMALITY ABNORMAL RHYTH M ECG Rate has increased since prior tracing, Inferior lateral ST depression is noted, Poor R wave pr ogression, but other than rate largely unchanged from prior tracing NO PREVIOUS TRACING DOCTOR: Jose Savage Interpretating Date/Time 06/25/2016 14:47:03
[2016-06-25] MEDS: ONDANSETRON HCL 4 MG/2 ML VIAL IVP PRN (21:19)
[2016-06-25] MEDS: ACETAMINOPHEN/HYDROcodone 325 MG/10 MG TAB PO PRN (21:20)
[2016-06-26] VITALS (21 sets, daily range): BP systolic 107–138; BP diastolic 59–82; PULSE 58–97; RESP 17–26; TEMP 97.5–97.7; O2SAT 95–98
[2016-06-26] MEDS: RESP: ALBUTEROL 2.5 MG/IPRATROPIUM 0.5 MG NEB (SCH) NEB ×5 (03:21→19:40)
[2016-06-26 05:06] LABS: AUTOMATED NEUTROPHIL # 6.5 TH/MM3 (1.8-7.7); BASOPHIL % 0.2 % (0.0-2.0); HEMATOCRIT 44.8 % (35.0-46.0); HEMO FLAGS DIFF FINAL; LYMPH % 9.2 % (9.0-44.0); LYMPHOCYTE # 0.7 TH/MM3 (1.0-4.8); MEAN CELL VOLUME 94.3 FL (80.0-100.0); MEAN CORPUSCULAR HEMOGLOBIN 30.6 PG (27.0-34.0); MEAN CORPUSCULAR HGB CONC 32.5 % (32.0-36.0); MONO % 3.2 % (0.0-8.0); NEUT % 87.4 % (16.0-70.0); PLATELET COUNT 219 TH/MM3 (150-450); RED BLOOD COUNT 4.75 MIL/MM3 (4.00-5.30); RED CELL DISTRIBUTION WIDTH 13.8 % (11.6-17.2); WHITE BLOOD COUNT 7.5 TH/MM3 (4.0-11.0)
[2016-06-26 05:34] LABS: ALKALINE PHOSPHATASE 90 U/L (45-117); ALT (GPT) 17 U/L (10-53); ANION GAP 7 MEQ/L (5-15); AST (GOT) 11 U/L (15-37); BICARBONATE 30.5 MEQ/L (21.0-32.0); BLOOD UREA NITROGEN 18 MG/DL (7-18); CHLORIDE 101 MEQ/L (98-107); GLOMERULAR FILTRATION RATE 76 ML/MIN (>89); POTASSIUM 4.6 MEQ/L (3.5-5.1); SODIUM (NA) 138 MEQ/L (136-145); TOTAL BILIRUBIN ADULT 0.2 MG/DL (0.2-1.0)
[2016-06-26] MEDS: cefTRIAXone INJ 1,000 MG in SODIUM CHLORIDE 0.9% INJ 100 ML IV SCH (05:49)
[2016-06-26] MEDS: methylPREDNISolone SOD SUCC 40 MG/1 ML VIAL IV PUSH SCH ×4 (05:49→21:53)
[2016-06-26] MEDS: AZITHROMYCIN INJ 500 MG in SODIUM CHLOR 0.9% 250 ML INJ 250 ML IV SCH (07:09)
[2016-06-26] MEDS: cloNIDine HCL 0.1 MG TAB PO SCH ×3 (09:00→16:46)
[2016-06-26] MEDS: BUDESONIDE-FORMOTEROL 160/4.5 MCG INHALER INH SCH (09:00)
[2016-06-26] MEDS: METOPROLOL TARTRATE 25 MG TAB PO SCH ×2 (09:37→21:53)
[2016-06-26] MEDS: NIFEdipine 60 MG SUSTAINED RELEASE TAB PO SCH (09:37)
[2016-06-26] MEDS: ONDANSETRON HCL 4 MG/2 ML VIAL IVP PRN ×3 (09:37→23:25)
[2016-06-26] MEDS: ASPIRIN EC 81 MG TABEC PO SCH (09:37)
[2016-06-26] MEDS: ESTROGENS CONJUGATED 1.25 MG TAB PO SCH (09:37)
[2016-06-26] MEDS: SODIUM CHLORIDE 0.9% FLUSH 10 ML FLUSH IV FLUSH SCH ×2 (09:38→21:00)
[2016-06-26] MEDS: PANTOPRAZOLE SOD 20 MG DELAYED RELEASE TAB PO SCH (12:59)
--- NOTE | 2016-06-26 15:57 | HHI.PR ---
Subjective Remarks Follow-up for acute respiratory failure with hypoxia Per patient breathing has improved. BiPAP was weaned off and she is on nasal cannula. Denying cough. Complaining of nausea, but denies any abdominal pain. Patient remains afebrile no other issues. Objective Vitals Vital Signs Date Time Temp Pulse Resp B/P Pulse Ox O2 Delivery O2 Flow Rate FiO2 06/26/16 15:46 96 Nasal Cannula 2.00 06/26/16 15:40 97.7 70 20 107/72 96 06/26/16 14:02 63 06/26/16 13:58 63 06/26/16 13:25 97.7 70 20 107/72 96 06/26/16 11:00 62 17 117/59 97 Nasal Cannula 2 06/26/16 09:00 62 17 125/69 97 Nasal Cannula 2 06/26/16 07:44 98 Nasal Cannula 4.00 06/26/16 07:00 58 26 127/64 97 Nasal Cannula 4 06/26/16 07:00 66 26 97 Nasal Cannula 4 06/26/16 05:29 97.7 68 20 138/82 95 Nasal Cannula 2 06/26/16 01:11 65 20 115/63 98 06/26/16 00:59 20 06/26/16 00:26 61 20 109/61 98 Nasal Cannula 06/25/16 21:21 86 20 129/70 96 06/25/16 21:09 97 20 152/72 98 Nasal Cannula 2 06/25/16 20:20 96 Nasal Cannula 4.00 06/25/16 18:02 106 24 155/76 95 Nasal Cannula 4 06/25/16 17:03 112 19 161/85 95 Nasal Cannula 3 Result Diagram: 06/26/16 0455 06/26/16 0455 Objective Remarks GENERAL:in NAD CARDIOVASCULAR: Regular rate and rhythm without murmurs, gallops, or rubs. RESPIRATORY: Breath sounds equal bilaterally. No accessory muscle use. GASTROINTESTINAL: Abdomen soft, non-tender, nondistended. MUSCULOSKELETAL: No cyanosis, or edema. BACK: Nontender without obvious deformity. No CVA tenderness. Medications and IVs Current Medications Sodium Chloride (NS Flush) 2 ml UNSCH PRN IVF FLUSH AFTER USING IV ACCESS; Start 06/25/16 at 04:30; Stop 06/25/16 at 08:09; Status DC Albuterol/ Ipratropium 1 ampule 1 ampule Q15M INH Last administered on 04:41; Start 06/25/16 at 04:30; Stop 06/25/16 at 05:01; Status DC Sodium Chloride 1,000 ml @ 1,000 mls/hr Q1H ONCE IV Last administered on 06:38; Start 06/25/16 at 06:04; Stop 06/25/16 at 07:03; Status DC Sodium Chloride 1,000 ml @ 1,000 mls/hr Q1H ONCE IV Last administered on 07:20; Start 06/25/16 at 06:04; Stop 06/25/16 at 07:03; Status DC Sodium Chloride 700 ml @ 1,000 mls/hr Q42M ONCE IV ; Start 06/25/16 at 06:04; Stop 06/25/16 at 06:45; Status DC Ceftriaxone Sodium 1000 mg/ Sodium Chloride 100 ml @ 200 mls/hr ONCE ONCE IV Last administered on 06/25/16 06:38; Start 06/25/16 at 06:15; Stop 06/25/16 at 06:44; Status DC Azithromycin 500 mg/Sodium Chloride 250 ml @ 250 mls/hr ONCE ONCE IV Last administered on 06/25/16 07:21; Start 06/25/16 at 06:15; Stop 06/25/16 at 07:14 ; Status DC Ceftriaxone Sodium 1000 mg/ Sodium Chloride 100 ml @ 200 mls/hr Q24H IV Last administered on 06/26/16 05:49; Start 06/26/16 at 06:00 Azithromycin/ Sodium Chloride (Zithromax Inj/ NS 250 ml Inj) 250 ml @ 250 mls/ hr Q24H IV Last administered on 06/26/16 07:09; Start 06/26/16 at 07:00 Methylprednisolone Sodium Succinate (SoluMEDROL INJ) 40 mg Q6HR IV PUSH ; Start 06/25/16 at 12:00; Stop 06/25/16 at 12:00; Status DC Albuterol/ Ipratropium (Duoneb Neb) 1 ampule Q4HR WHILE AWAKE NEB NEB Last administered on 06/25/16 08:41; Start 06/25/16 at 08:00; Stop 06/25/16 at 08:58 ; Status DC Albuterol/ Ipratropium (Duoneb Neb) 1 ampule Q2HR NEB PRN NEB SOB/WHEEZING; Start 06/25/16 at 07:00 Budesonide/ Formoterol Fumarate (Symbicort 160-4.5 Inh) 2 puff Q12HR INH ; Start 06/25/16 at 09:00 Sodium Chloride (NS Flush) 2 ml UNSCH PRN IV FLUSH FLUSH AFTER USING IV ACCESS ; Start 06/25/16 at 07:00 Sodium Chloride (NS Flush) 2 ml BID IV FLUSH Last administered on 06/26/16 09: 38; Start 06/25/16 at 09:00 Ondansetron HCl (Zofran Inj) 4 mg Q6H PRN IVP NAUSEA OR VOMITING Last administered on 06/26/16 09:37; Start 06/25/16 at 07:00 Bisacodyl (Dulcolax Supp) 10 mg DAILY PRN [place] CONSTIPATION; Start 06/25/16 at 07 :00 Acetaminophen (Tylenol) 650 mg Q6H PRN PO FEVER/PAIN SCALE 1 TO 2; Start at 07:00 Acetaminophen/ Hydrocodone Bitart ([place] 5-325 Mg) 1 tab Q4H PRN PO PAIN SCALE 3 TO 5 Last administered on 06/26/16 05:52; Start 06/25/16 at 07:00 Acetaminophen/ Hydrocodone Bitart ([place] 10-325 Mg) 1 tab Q4H PRN PO PAIN 6-10 Last administered on 06/25/16 21:20; Start 06/25/16 at 07:00 Aspirin (Ecotrin Ec) 81 mg DAILY PO Last administered on 06/26/16 09:37; Start 06/25/16 at 09:00 Clonidine (Catapres) 0.1 mg TID PO Last administered on 06/25/16 18:01; Start 06/25/16 at 09:00 Estrogens Conjugated (Premarin) 1.25 mg DAILY PO Last administered on 09:37; Start 06/25/16 at 09:00 Metoprolol Tartrate (Lopressor) 25 mg Q12HR PO Last administered on 06/26/16 09:37; Start 06/25/16 at 09:00 Nifedipine (Procardia Xl) 60 mg DAILY PO Last administered on 06/26/16 09:37; Start 06/25/16 at 09:00 Albuterol/ Ipratropium (Duoneb Neb) 1 ampule Q4HR NEB NEB Last administered on 06/26/16 15:46; Start 06/25/16 at 12:00 Methylprednisolone Sodium Succinate (SoluMEDROL INJ) 60 mg Q6HR IV PUSH Last administered on 06/26/16 12:30; Start 06/25/16 at 12:00 Pantoprazole Sodium (Protonix) 20 mg DAILY PO Last administered on 06/26/16 12 :59; Start 06/26/16 at 12:45 A/P Assessment and Plan 71-year-old female with COPD and tobacco dependence who presented with shortness of breathing Acute respiratory failure with hypoxia -IMPROVED. -Secondary to COPD exacerbation. -Chest x-ray negative for any pneumonia. Labs reviewed. Patient clinically improving on BiPAP. -off Bipap and on NC now. continue to wean. -continue with scheduled DuoNeb nebs every 4 hours with albuterol when necessary every hrs PRN, Rocephin and azithromycin. -Smoking cessation. will decrease solumedrol. -Continue to monitor patient clinically. Tobacco dependence -Smoking cessation. Paroxysmal SVT/hypertension/menopausal symptoms -continue home medication. DVT prophylaxis -SCDs Discharge Planning clinically improving. will require 1-2 more days of hospitalization. Danielle Vega MD Jun 26, 2016 15:57
[2016-06-26] MEDS: ACETAMINOPHEN/HYDROcodone 325 MG/10 MG TAB PO PRN ×2 (16:46→23:25)
[2016-06-26] MEDS ORDERED: UMECLIDINIUM 62.5 MCG/VILANTEROL 25 MCG INHALER INH SCH (22:00)
[2016-06-27] VITALS (22 sets, daily range): BP systolic 123–160; BP diastolic 66–97; PULSE 68–100; RESP 18–20; TEMP 97.9–98.1; O2SAT 92–97
[2016-06-27] MEDS: RESP: ALBUTEROL 2.5 MG/IPRATROPIUM 0.5 MG NEB (SCH) NEB ×5 (03:11→15:17)
[2016-06-27] MEDS ORDERED: diphenhydrAMINE HCL 25 MG CAP PO ONE (05:15)
[2016-06-27] MEDS: cefTRIAXone INJ 1,000 MG in SODIUM CHLORIDE 0.9% INJ 100 ML IV SCH (05:29)
[2016-06-27] MEDS: AZITHROMYCIN INJ 500 MG in SODIUM CHLOR 0.9% 250 ML INJ 250 ML IV SCH (07:00)
[2016-06-27] MEDS: METOPROLOL TARTRATE 25 MG TAB PO SCH (08:57)
[2016-06-27] MEDS: ESTROGENS CONJUGATED 1.25 MG TAB PO SCH (08:57)
[2016-06-27] MEDS: methylPREDNISolone SOD SUCC 40 MG/1 ML VIAL IV PUSH SCH (08:57)
[2016-06-27] MEDS: NIFEdipine 60 MG SUSTAINED RELEASE TAB PO SCH (08:57)
[2016-06-27] MEDS: SODIUM CHLORIDE 0.9% FLUSH 10 ML FLUSH IV FLUSH SCH (08:58)
[2016-06-27] MEDS: PANTOPRAZOLE SOD 20 MG DELAYED RELEASE TAB PO SCH (08:58)
[2016-06-27] MEDS: ASPIRIN EC 81 MG TABEC PO SCH (08:58)
[2016-06-27] MEDS: cloNIDine HCL 0.1 MG TAB PO SCH ×3 (08:58→16:31)
[2016-06-27] MEDS: ONDANSETRON HCL 4 MG/2 ML VIAL IVP PRN (10:22)
[2016-06-27] MEDS: ACETAMINOPHEN/HYDROcodone 325 MG/10 MG TAB PO PRN ×2 (10:22→18:52)
[2016-06-27] MEDS ORDERED: LEVA750T PO (14:38)
[2016-06-27] MEDS ORDERED: PRED20 PO (14:38)
[2016-06-27] MEDS ORDERED: IPRAAER INH (14:38)
[2016-06-27] MEDS ORDERED: VENTAER INH (14:38)
[2016-06-27] MEDS ORDERED: OXYGENTANK NAS.CANULA (14:39)
--- NOTE | 2016-06-27 14:39 | HHI.DCPOC ---
Discharge Care Plan Diagnosis: (1) COPD with acute exacerbation Goals to Promote Your Health * To prevent worsening of your condition and complications * To maintain your health at the optimal level Directions to Meet Your Goals Take your medications as prescribed Follow your dietary instruction Follow activity as directed Keep your appointments as scheduled Take your immunizations and boosters as scheduled If your symptoms worsen call your PCP, if no PCP go to Urgent Care Center or Emergency Room Smoking is Dangerous to Your Health. Avoid second hand smoke Call the 24-hour hour crisis hotline for domestic abuse at Danielle Vega MD Jun 27, 2016 14:39
--- NOTE | 2016-06-27 15:37 | HHI.PR ---
Subjective Remarks f/u for COPD exacerbation. patient stated SOB has improved. She is wanting to go home. Per nurse she desat off of O2. I told patient she most likely needs oxygen and she stated she doesnt need it and she was put on it before and never used it. denied any cough. remains afebrile. she feels like she is very close to her baseline. Objective Vitals Vital Signs Date Time Temp Pulse Resp B/P Pulse Ox O2 Delivery O2 Flow Rate FiO2 06/27/16 14:00 80 06/27/16 13:00 88 06/27/16 12:00 77 06/27/16 11:30 93 Nasal Cannula 2.00 06/27/16 11:00 72 06/27/16 11:00 Nasal Cannula 2.00 06/27/16 11:00 97.9 75 20 136/71 96 06/27/16 10:00 75 06/27/16 09:00 100 06/27/16 08:00 80 06/27/16 07:36 98.0 86 20 123/66 92 06/27/16 07:36 Nasal Cannula 2.00 06/27/16 07:00 98 06/27/16 06:00 74 06/27/16 05:00 72 06/27/16 04:00 68 06/27/16 03:45 Nasal Cannula 2.00 06/27/16 03:00 72 06/27/16 02:00 80 06/27/16 01:00 68 06/27/16 00:00 70 06/27/16 00:00 97.9 77 18 160/97 93 06/27/16 00:00 Nasal Cannula 2.00 06/26/16 23:00 80 06/26/16 22:00 78 06/26/16 21:00 78 06/26/16 20:00 97.5 97 18 132/68 96 06/26/16 20:00 82 06/26/16 19:00 70 06/26/16 18:39 73 06/26/16 17:00 77 06/26/16 16:00 70 06/26/16 15:46 96 Nasal Cannula 2.00 06/26/16 15:40 97.7 70 20 107/72 96 I/O 06/26/16 06/26/16 06/26/16 06/27/16 06/27/16 06/27/16 07:00 15:00 23:00 07:00 15:00 23:00 Intake Total 240 ml 480 ml Output Total 0 ml Balance 240 ml 480 ml Intake Oral 240 ml 480 ml Output Urine Total 0 ml # Voids 3 # Bowel Movements 0 Result Diagram: 06/26/16 0455 06/26/16 0455 Objective Remarks GENERAL:in NAD CARDIOVASCULAR: Regular rate and rhythm without murmurs, gallops, or rubs. RESPIRATORY: Breath sounds equal bilaterally with few diffuse exp wheezing. No accessory muscle use. GASTROINTESTINAL: Abdomen soft, non-tender, nondistended. MUSCULOSKELETAL: No cyanosis, or edema. BACK: Nontender without obvious deformity. No CVA tenderness. Medications and IVs Current Medications Sodium Chloride (NS Flush) 2 ml UNSCH PRN IVF FLUSH AFTER USING IV ACCESS; Start 06/25/16 at 04:30; Stop 06/25/16 at 08:09; Status DC Albuterol/ Ipratropium 1 ampule 1 ampule Q15M INH Last administered on 04:41; Start 06/25/16 at 04:30; Stop 06/25/16 at 05:01; Status DC Sodium Chloride 1,000 ml @ 1,000 mls/hr Q1H ONCE IV Last administered on 06:38; Start 06/25/16 at 06:04; Stop 06/25/16 at 07:03; Status DC Sodium Chloride 1,000 ml @ 1,000 mls/hr Q1H ONCE IV Last administered on 07:20; Start 06/25/16 at 06:04; Stop 06/25/16 at 07:03; Status DC Sodium Chloride 700 ml @ 1,000 mls/hr Q42M ONCE IV ; Start 06/25/16 at 06:04; Stop 06/25/16 at 06:45; Status DC Ceftriaxone Sodium 1000 mg/ Sodium Chloride 100 ml @ 200 mls/hr ONCE ONCE IV Last administered on 06/25/16 06:38; Start 06/25/16 at 06:15; Stop 06/25/16 at 06:44; Status DC Azithromycin 500 mg/Sodium Chloride 250 ml @ 250 mls/hr ONCE ONCE IV Last administered on 06/25/16 07:21; Start 06/25/16 at 06:15; Stop 06/25/16 at 07:14 ; Status DC Ceftriaxone Sodium 1000 mg/ Sodium Chloride 100 ml @ 200 mls/hr Q24H IV Last administered on 06/27/16 05:29; Start 06/26/16 at 06:00 Azithromycin/ Sodium Chloride (Zithromax Inj/ NS 250 ml Inj) 250 ml @ 250 mls/ hr Q24H IV Last administered on 06/27/16 07:00; Start 06/26/16 at 07:00 Methylprednisolone Sodium Succinate (SoluMEDROL INJ) 40 mg Q6HR IV PUSH ; Start 06/25/16 at 12:00; Stop 06/25/16 at 12:00; Status DC Albuterol/ Ipratropium (Duoneb Neb) 1 ampule Q4HR WHILE AWAKE NEB NEB Last administered on 06/25/16 08:41; Start 06/25/16 at 08:00; Stop 06/25/16 at 08:58 ; Status DC Albuterol/ Ipratropium (Duoneb Neb) 1 ampule Q2HR NEB PRN NEB SOB/WHEEZING; Start 06/25/16 at 07:00 Budesonide/ Formoterol Fumarate (Symbicort 160-4.5 Inh) 2 puff Q12HR INH ; Start 06/25/16 at 09:00; Stop 06/26/16 at 21:18; Status DC Sodium Chloride (NS Flush) 2 ml UNSCH PRN IV FLUSH FLUSH AFTER USING IV ACCESS ; Start 06/25/16 at 07:00 Sodium Chloride (NS Flush) 2 ml BID IV FLUSH Last administered on 06/27/16 08: 58; Start 06/25/16 at 09:00 Ondansetron HCl (Zofran Inj) 4 mg Q6H PRN IVP NAUSEA OR VOMITING Last administered on 06/27/16 10:22; Start 06/25/16 at 07:00 Bisacodyl (Dulcolax Supp) 10 mg DAILY PRN PA CONSTIPATION; Start 06/25/16 at 07 :00 Acetaminophen (Tylenol) 650 mg Q6H PRN PO FEVER/PAIN SCALE 1 TO 2; Start at 07:00 Acetaminophen/ Hydrocodone Bitart (Chelsea 5-325 Mg) 1 tab Q4H PRN PO PAIN SCALE 3 TO 5 Last administered on 06/26/16 05:52; Start 06/25/16 at 07:00 Acetaminophen/ Hydrocodone Bitart (Chelsea 10-325 Mg) 1 tab Q4H PRN PO PAIN 6-10 Last administered on 06/27/16 10:22; Start 06/25/16 at 07:00 Aspirin (Ecotrin Ec) 81 mg DAILY PO Last administered on 06/27/16 08:58; Start 06/25/16 at 09:00 Clonidine (Catapres) 0.1 mg TID PO Last administered on 06/25/16 18:01; Start 06/25/16 at 09:00 Estrogens Conjugated (Premarin) 1.25 mg DAILY PO Last administered on 08:57; Start 06/25/16 at 09:00 Metoprolol Tartrate (Lopressor) 25 mg Q12HR PO Last administered on 06/27/16 08:57; Start 06/25/16 at 09:00 Nifedipine (Procardia Xl) 60 mg DAILY PO Last administered on 06/27/16 08:57; Start 06/25/16 at 09:00 Albuterol/ Ipratropium (Duoneb Neb) 1 ampule Q4HR NEB NEB Last administered on 06/27/16 15:17; Start 06/25/16 at 12:00 Methylprednisolone Sodium Succinate (SoluMEDROL INJ) 60 mg Q6HR IV PUSH Last administered on 06/26/16 12:30; Start 06/25/16 at 12:00; Stop 06/26/16 at 15:54 ; Status DC Pantoprazole Sodium (Protonix) 20 mg DAILY PO Last administered on 06/27/16 08 :58; Start 06/26/16 at 12:45 Methylprednisolone Sodium Succinate (SoluMEDROL INJ) 40 mg Q12HR IV PUSH Last administered on 06/27/16 08:57; Start 06/26/16 at 21:00 Diphenhydramine HCl (Benadryl) 25 mg ONCE ONCE PO Last administered on 05:29; Start 06/27/16 at 05:15; Stop 06/27/16 at 05:16; Status DC A/P Assessment and Plan 71-year-old female with COPD and tobacco dependence who presented with shortness of breathing Acute respiratory failure with hypoxia -IMPROVED. -Secondary to COPD exacerbation. -Chest x-ray negative for any pneumonia. Labs reviewed. Patient clinically improving on BiPAP. -off Bipap and on NC. continue to wean. will get walk test for home o2. -continue with scheduled DuoNeb nebs every 4 hours with albuterol when necessary every hrs PRN, Rocephin and azithromycin while in hospital but can switch to PO levaquin, prednisone since patient is doing very well. -Smoking cessation. -Continue to monitor patient clinically. Tobacco dependence -Smoking cessation. Paroxysmal SVT/hypertension/menopausal symptoms -continue home medication. DVT prophylaxis -SCDs Discharge Planning patient stable for discharge. most likely needs O 2 so will get walk test. d/w case management and nurse that patient can be d/c when she receives home oxygen. Danielle Vega MD Jun 27, 2016 15:37
[2016-06-27 22:39] LABS: CRITICAL VALUE YES
--- NOTE | 2016-06-28 19:58 | HHI.DS ---
Discharge Summary Admission Date Jun 25, 2016 at 06:52 Discharge Date: Jun 27, 2016 Admitting Diagnosis COPD exacerbation (1) COPD with acute exacerbation ICD Code: J44.1 Diagnosis: Principal (2) Hypoxemia ICD Code: R09.02 Diagnosis: Principal Procedures none Brief History - From Admission This is a 71-year-old female with past medical history of COPD and tobacco dependence who presented with shortness of breathing for the past 2 days. Patient stated last 2 days she gradually had increased shortness of breathing along with a productive cough sputum yellow in color. She stated that she had increased activity with her grandchildren and which her shortness of breathing has worsened. Denies any fevers or chills. Also stated she had emesis that have resolved. Patient stated that at her baseline she is able to walk about half a mile before she gets shortness of breathing. She smokes about half a pack per day for the past 40 years. Patient stated that she is not on any oxygen at home. Patient currently on BiPAP at 02/03 and she stated that it is helping her breathing. CBC/BMP: 06/26/1645406/26/16454 Significant Findings Laboratory Tests Test 06/26/16 04:55 Mean Platelet Volume 6.9 FL (7.0-11.0) Neutrophils (%) (Auto) 87.4 % (16.0-70.0) Lymphocytes # (Auto) 0.7 TH/MM3 (1.0-4.8) Estimat Glomerular Filtration 76 ML/MIN (>89) Rate Random Glucose 147 MG/DL (74-106) Aspartate Amino Transf 11 U/L (15-37) (AST/SGOT) Albumin 3.2 GM/DL (3.4-5.0) Imaging Last Impressions Chest X-Ray 06/25/16424 Signed Impressions: Service Date/Time: Saturday, June 25, 2016 05:11 - CONCLUSION: 1. Hyperinflation which can be seen with COPD. 2. Bibasilar densities likely atelectasis. Mike Lopez MD PE at Discharge GENERAL:in NAD CARDIOVASCULAR: Regular rate and rhythm without murmurs, gallops, or rubs. RESPIRATORY: Breath sounds equal bilaterally with few diffuse exp wheezing. No accessory muscle use. GASTROINTESTINAL: Abdomen soft, non-tender, nondistended. MUSCULOSKELETAL: No cyanosis, or edema. BACK: Nontender without obvious deformity. No CVA tenderness. Hospital Course 1-year-old female with COPD and tobacco dependence who presented with shortness of breathing Acute respiratory failure with hypoxia -Secondary to COPD exacerbation. -Chest x-ray negative for any pneumonia. Labs reviewed. Patient initially on BiPAP and was able to wean off on NC with treatment. -she was put on scheduled DuoNeb nebs every 4 hours with albuterol when necessary every hrs PRN, Rocephin and azithromycin while in hospital but was switch to PO levaquin on discharge and since patient is doing very well. -she failed the walk test so was sent home on O2. Tobacco dependence -Smoking cessation. Paroxysmal SVT/hypertension/menopausal symptoms -continue home medication. Pt Condition on Discharge: Stable Discharge Disposition: Discharge Home Discharge Time: > 30 minutes Discharge Instructions DIET: Follow Instructions for: Heart Healthy Diet Activities you can perform: Regular-No Restrictions Other Activity Instructions: No not use any flames around oxygen. It can explode. Follow up Referrals: PCP Follow-up - 3-5 Days New Medications: Albuterol 18 GM Inh (Ventolin Hfa 18 GM Inh) 90 Mcg/Act Aer 2 PUFF INH Q4H PRN SHORTNESS OF BREATH #1 Ref 0 INHALER Ipratropium-Albuterol Inh (Combivent Respimat Inh) 20-100 Half-Way/Act Aero 1 PUFF INH QID wean off by your primary care physician. Asthma Management #1 Ref 0 INHALER Levofloxacin (Levaquin) 750 Mg Tab 750 MG PO DAILY Infection #6 Ref 0 TAB Oxygen tank (Oxygen tank) 1 Ea Tank 2 LITER SALLY.CANULA CONTINUOUS Oxygen Concentrator Portable Gaseous 2 L/min via Nasal Cannula Continuous For 99 months HYPOXEMIA PREVENTION #2 CYLINDER Prednisone (Prednisone) 20 Mg Tab 20 MG PO DIRECTED 40 MG twice a day x 3 days, then 20 MG daily x 3 days, then 10 MG daily x 3 days Inflammation #11 Ref 0 TAB Continued Medications: Aspirin DR (Aspirin EC) 81 Mg Tabdr 81 MG PO DAILY heart #30 Ref 0 TAB Clonidine (Clonidine) 0.1 Mg Tab 0.1 MG PO TID Blood Pressure Management #60 Ref 0 TAB Estrogens, Conjugated (Premarin) 1.25 Mg Tab 1.25 MG PO DAILY Estrogen Supplements #30 Ref 0 TAB Metoprolol Tartrate (Metoprolol Tartrate) 25 Mg Tab 25 MG PO Q12HR #60 Ref 0 TAB Nifedipine ER 24 HR (Nifedical XL) 60 Mg Tab 60 MG PO DAILY pulmonary hypertension #30 Ref 0 TAB Prednisone (Prednisone) 2.5 Mg Tab 2.5 MG PO QID Ref 0 TAB Umeclidinium-Vilanterol Inh (Anoro Ellipta Inh) 62.5-25 Mcg/Act Aero 1 PUFF INH DAILY COPD #1 Ref 0 INHALER Danielle Vega MD Jun 28, 2016 19:58
== END 2016-06-27 19:00 | disposition home or self-care (01) | DRG 190 ==
LOC: NEPE 04:15 → NEDA 06:52 → NEDH 20:07 → HCIS 06-26 13:47
PROVIDERS: ADMIT Family Medicine; ATTEND Family Medicine
PROC: 5A09357 Assistance with Respiratory Ventilation, Less than 24 Consecutive Hours, Continuous Positive Airway Pressure (ICD-10-PCS; principal; 2016-06-25)
DX: J44.1 Chronic obstructive pulmonary disease with (acute) exacerbation (principal); J96.01 Acute respiratory failure with hypoxia; I47.1 Supraventricular tachycardia; F17.210 Nicotine dependence, cigarettes, uncomplicated; I10 Essential (primary) hypertension; M35.3 Polymyalgia rheumatica; Z79.52 Long term (current) use of systemic steroids
CPT/HCPCS: 36600; 71010; 80053; 81001; 82550; 82805; 83605; 83735; 83880; 84484; 85025; 85379; 85610; 85730; 87040; 93005; 94002; 94620; 94640; 94664; 96374; J0456; J0696; J2405; J2920; J7030; J7050

== ENCOUNTER 2017-09-10 23:20 | Inpatient (IN) | payer OTHER, MEDICARE ==
[~2017-09-10] VITALS: Ht 165.1 cm; Wt 89.0 kg
[~2017-09-10 23:20] MED LIST changes: -ASPI81TA11 PO; +ASPI81TA23 PO; +IPRAAER INH; +LEVA750T PO; +OXYGENTANK NAS.CANULA; +PRED20 PO; +VENTAER INH
[2017-09-10 23:23] VITALS: BP 132/86; PULSE 122; RESP 32; TEMP 99.4; O2SAT 89; O2SAT 90
--- NOTE | 2017-09-10 23:42 | PD ---
HPI Chief Complaint: Respiratory Distress Time Seen by Provider: 23:32 Travel History International Travel<30 days: No Contact w/Intl Traveler<30days: No Traveled to known affect area: No History of Present Illness HPI The patient is a 72 year old female who presents to the [facility] emergency department with a history of cough, congestion, fever, generalized weakness, and worsening shortness of breath that began over the last week. The patient was brought in by ambulance services. The patient on examination has respiratory distress and is unable to provide any significant history. The patient was noted prior to arrival to have O2 saturations in the low 80s. The patient was started on a DuoNeb 1 and her improved. The patient received 2 additional albuterol nebulizer treatments in route to this facility. She reports he did have an episode of nausea and vomiting 1 prior to arrival. She was given Zofran 4 mg IV, Solu-Medrol 125 mg IV. The patient on arrival is saturating 96-98 on an albuterol nebulizer treatment. When this is concluded the patient's O2 saturation on room air is 89-90%. The patient was continued on supplemental oxygen by facemask as she appears to be mouth breathing. The patient according to ambulance services resides at home. The patient according to ambulance services has a history of pneumonia and COPD. The patient reports that she does continue to smoke. Given the fact that the patient is in respiratory distress, review of systems was limited. The patient's past medical history was also obtained through the electronic medical record. The patient denies having any chest pain, however she does report having low back pain. She is unsure how long this is been going on. PFSH Past Medical History Asthma: Yes Autoimmune Disease: Yes (POLYMALGIA RHEUMATICA) Cancer: No Cardiovascular Problems: Yes Congestive Heart Failure: No COPD: Yes Coronary Artery Disease: No Diabetes: No Diminished Hearing: No Endocrine: No Gastrointestinal Disorders: Yes Genitourinary: Yes Hypertension: Yes Immune Disorder: Yes Implanted Vascular Access Dvce: No Musculoskeletal: Yes Neurologic: No Psychiatric: No Reproductive: No Respiratory: Yes Immunizations Current: Yes Thyroid Disease: No Tetanus Vaccination: Unknown Influenza Vaccination: Yes Past Surgical History Abdominal Surgery: Yes (GALLBLADDER, RESECTION OF COLON) Cholecystectomy: Yes Gynecologic Surgery: Yes (HYSTERECTOMY) Hysterectomy: Yes Other Surgery: Yes Social History Alcohol Use: No Tobacco Use: Yes (1-2 PPD) Substance Use: No Allergies-Medications (Allergen,Severity, Reaction): Coded Allergies: Sulfa (Sulfonamide Antibiotics) (Unverified Allergy, Severe, Anaphylaxis, 09/10/17) budesonide (Unverified Allergy, Unknown, 09/10/17) formoterol (Unverified Allergy, Unknown, 09/10/17) morphine (Unverified Adverse Reaction, Severe, Hallucinations, 09/10/17) *MDRO Multi-Drug Resistant Organism (Verified Adverse Reaction, Unknown, ) 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 Ventolin Hfa 18 GM Inh (Albuterol Sulfate) 90 Mcg/Act Aer 2 Puff INH Q4H PRN Levaquin (Levofloxacin) 750 Mg Tab 750 Mg PO DAILY Prednisone 20 Mg Tab 20 Mg PO DIRECTED 40 MG twice a day x 3 days, then 20 MG daily x 3 days, then 10 MG daily x 3 days Nifedical XL (Nifedipine) 60 Mg Tab 60 Mg PO DAILY Aspirin EC (Aspirin) 81 Mg Tabdr 81 Mg PO DAILY Reported Anoro Ellipta Inh (Umeclidinium/Vilanterol) 62.5-25 Mcg/Act Aero 1 Puff INH DAILY Metoprolol Tartrate 25 Mg Tab 25 Mg PO Q12HR Prednisone 2.5 Mg Tab 2.5 Mg PO QID Premarin (Estrogens Conjugated) 1.25 Mg Tab 1.25 Mg PO DAILY Clonidine (Clonidine HCl) 0.1 Mg Tab 0.1 Mg PO TID Physical Exam Narrative General: The patient is a well-developed well-nourished female, disheveled appearing on arrival, emesis along the with an odor of stale urine about her. Head and Neck exam: Head is normocephalic atraumatic. Eyes: EOMI, pupils are equal round and reactive to light. Nose: Midline septum with pink mucous membranes Mouth: Dentition unremarkable. Moist mucus membranes. Posterior oropharynx is mildly erythematous with postnasal drip noted to be consisting of thick yellow mucus. No tonsillar hypertrophy. Uvula midline. Airway patent. Neck: No palpable lymphadenopathy. No nuchal rigidity. No thyromegaly. Cardiovascular: Sinus tachycardia in the low 100s without murmurs, gallops, or rubs. No pulse deficit to the extremities on simultaneous auscultation and palpation of her radial artery. Lungs: Expiratory wheezes audible posteriorly and anteriorly. The patient has scattered rhonchi with a productive cough noted. Decreased breath sounds in bilateral bases. No crackles audible. Abdomen: Soft, without tenderness to palpation in all 4 quadrants of the abdomen. No guarding, rebound, or rigidity. Normal bowel sounds are audible. No tenderness on palpation of McBurney's point. Negative Webb sign. Extremities: No clubbing, cyanosis, or edema. 2+ pulses in all 4 extremities. No calf tenderness on palpation. Back: No spinous process tenderness to palpation. The patient reports bilateral CVA tenderness on palpation. Neurologic Exam: The patient is uncooperative with formal neurologic testing. The patient has no obvious facial asymmetry. The patient is spontaneously moving all extremities with 5/5 strength. The patient has intact sensation over all dermatomes. Skin Exam: No rash noted. Intact skin that is warm and dry. Data Data Last Documented VS Vital Signs Date Time Temp Pulse Resp B/P (MAP) Pulse Ox O2 Delivery O2 Flow Rate FiO2 09/11/17 01:08 106 32 133/81 (98) 95 BiPAP 40 09/10/17 23:54 7.00 09/10/17 23:23 99.4 Orders Orders Electrocardiogram (09/10/17 23:34) Complete Blood Count With Diff (09/10/17 23:34) Comprehensive Metabolic Panel (09/10/17 23:34) Creatine Kinase (Cpk) (09/10/17 23:34) Ckmb (Isoenzyme) Profile (09/10/17 23:34) Troponin I (09/10/17 23:34) B-Type Natriuretic Peptide (09/10/17 23:34) Prothrombin Time / Inr (Pt) (09/10/17 23:34) Act Partial Throm Time (Ptt) (09/10/17 23:34) Blood Culture (09/10/17 23:34) C-Reactive Protein (Crp) (09/10/17 23:34) Lipase (09/10/17 23:34) Urinalysis - C+S If Indicated (09/10/17 23:34) Magnesium (Mg) (09/10/17 23:34) Chest, Single Ap (09/10/17 23:34) Iv Access Insert/Monitor (09/10/17 23:34) Ecg Monitoring (09/10/17 23:34) Oximetry (09/10/17 23:34) Urinary Catheter Insert/Apply (09/10/17 23:34) Lactic Acid Sepsis Protocol (09/10/17 23:34) Arterial Blood Gas (Abg) (09/10/17 23:39) Resp Bipap / Cpap Non Invas Vt (09/10/17 23:39) Sodium Chloride 0.9% Flush (Ns Flush) (09/11/17 00:00) Albuterol-Ipratropium Neb (Duoneb Neb) (09/11/17 00:00) Ceftriaxone Inj (Rocephin Inj) (09/11/17 00:00) Azithromycin Inj (Zithromax Inj) (09/11/17 01:00) Urine Culture (09/10/17 23:40) Admit Order (Ed Use Only) (09/11/17 01:19) Labs Laboratory Tests Test 09/10/17 23:40 09/10/17 23:57 White Blood Count 24.1 TH/MM3 Red Blood Count 5.26 MIL/MM3 Hemoglobin 16.3 GM/DL Hematocrit 47.5 % Mean Corpuscular Volume 90.5 FL Mean Corpuscular Hemoglobin 31.0 PG Mean Corpuscular Hemoglobin Concent 34.2 % Red Cell Distribution Width 14.4 % Platelet Count 318 TH/MM3 Mean Platelet Volume 7.1 FL Neutrophils (%) (Auto) 81.6 % Lymphocytes (%) (Auto) 12.0 % Monocytes (%) (Auto) 5.6 % Eosinophils (%) (Auto) 0.2 % Basophils (%) (Auto) 0.6 % Neutrophils # (Auto) 19.7 TH/MM3 Lymphocytes # (Auto) 2.9 TH/MM3 Monocytes # (Auto) 1.3 TH/MM3 Eosinophils # (Auto) 0.0 TH/MM3 Basophils # (Auto) 0.2 TH/MM3 CBC Comment DIFF FINAL Differential Comment Prothrombin Time 10.9 SEC Prothromb Time International Ratio 1.1 RATIO Activated Partial Thromboplast Time 23.8 SEC Urine Color YELLOW Urine Turbidity HAZY Urine pH 6.5 Urine Specific [place] 1.019 Urine Protein 100 mg/dL Urine Glucose (UA) NEG mg/dL Urine Ketones NEG mg/dL Urine Occult Blood MOD Urine Nitrite POS Urine Bilirubin NEG Urine Urobilinogen LESS THAN 2.0 MG/DL Urine Leukocyte Esterase NEG Urine RBC 21 /hpf Urine WBC 3 /hpf Urine Squamous Epithelial Cells 2 /hpf Urine Bacteria MANY /hpf Urine Mucus FEW /lpf Microscopic Urinalysis Comment CULTURE INDICATED Blood Urea Nitrogen 14 MG/DL Creatinine 0.59 MG/DL Random Glucose 148 MG/DL Total Protein 8.0 GM/DL Albumin 3.5 GM/DL Calcium Level 8.4 MG/DL Magnesium Level 1.6 MG/DL Alkaline Phosphatase 120 U/L Aspartate Amino Transf (AST/SGOT) 7 U/L Alanine Aminotransferase (ALT/SGPT) 14 U/L Total Bilirubin 0.8 MG/DL Sodium Level 134 MEQ/L Potassium Level 3.7 MEQ/L Chloride Level 95 MEQ/L Carbon Dioxide Level 27.3 MEQ/L Anion Gap 12 MEQ/L Estimat Glomerular Filtration Rate 100 ML/MIN Lactic Acid Level 0.9 mmol/L Total Creatine Kinase 36 U/L Troponin I LESS THAN 0.02 NG/ML C-Reactive Protein 12.30 MG/DL B-Type Natriuretic Peptide 33 PG/ML Lipase 52 U/L Blood Gas Puncture Site RT RADIAL Blood Gas Patient Temperature 98.6 Blood Gas HCO3 28 mmol/L Blood Gas Base Excess 3.0 mmol/L Blood Gas Oxygen Saturation 95 % Arterial Blood pH 7.33 Arterial Blood Partial Pressure CO2 55 mmHg Arterial Blood Partial Pressure O2 120 mmHG Arterial Blood Oxygen Content 21.6 Vol % Arterial Blood Carboxyhemoglobin 2.1 % Arterial Blood Methemoglobin 1.0 % Blood Gas Hemoglobin 16.1 G/DL Oxygen Delivery Device SM Blood Gas Liter Flow 7 L/M MDM Medical Decision Making Medical Screen Exam Complete: Yes Emergency Medical Condition: Yes Medical Record Reviewed: Yes Differential Diagnosis Pneumonia, versus pyelonephritis, versus sepsis, versus COPD exacerbation, versus encephalopathy Narrative Course During the course of the patient's emergency department visit, the patient's history, examination, and differential diagnosis were reviewed with the patient. 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 The patient had IV access obtained and blood work sent for analysis. The patient had a EKG done on arrival that shows a sinus tachycardia with a short MA interval, heart rate of 124, QRS duration 83 ms, QTC 361 ms. The patient was placed on BiPAP at 12/5, 40% which will be weaned as tolerated to maintain her O2 saturations 91-92%. Blood cultures 2 were ordered, lactic acid was sent for analysis as the patient meets sirs criteria and has symptoms suspicious for sepsis. The patient was initially provided duo nebs 2. The patient was given Solu- Medrol 125 mg IV prior to arrival. The patient was started on Rocephin 1 g IV, Zithromax 500 IV for suspected pneumonia. The patient's laboratory studies were reviewed and remarkable for a white count of 24.1, hemoglobin 16.3, platelets 318 with 81.6 neutrophils. CMP is remarkable for sodium 134, chloride 95, glucose 148, calcium 8.4, magnesium 1.6 , AST 7, alk phos 120, initial set of cardiac enzymes are negative, BNP is 33 ruling out congestive heart failure, lipase 52, C-reactive protein is 12.30, lactic acid is 0.9. PT 10.9, PTT 23.8. Urinalysis shows hazy urine 100 protein moderate occult blood positive nitrite 21 RBCs many bacteria, culture indicated. Radiology studies were reviewed and remarkable for Last Impressions Chest X-Ray 09/10/17 2334 Signed Impressions: CONCLUSION: Mild bilateral interstitial pulmonary opacity likely representing pulmonary zoya ma. The patient's results were discussed with the patient, including the plan of care. I explained that further testing and/ or monitoring is indicated based on the patient's history, examination, and/ or laboratory findings. Therefore, I recommended admission for additional evaluation. The patient expressed understanding and was agreeable with this plan. The patient was admitted to the hospital in guarded condition and sent to a [facility]. Critical Care Narrative Aggregate critical care time was 34 minutes. Time to perform other separately billable procedures was not included in the critical care time. My time did not include minutes spent treating any other patients simultaneously or on activities that did not directly contribute to the patient's treatment. The services I provided to this patient were to treat and/or prevent clinically significant deterioration that could result in: Fluid overload from crystalloid resuscitation, versus cardiovascular collapse from sepsis, versus respiratory failure I provided critical care services requiring my management, as noted below: Chart data review, documentation time, medication orders and management, vital sign assessments/reviewing monitor data, ordering and reviewing lab tests, ordering and interpreting/reviewing x-rays and diagnostic studies, care of the patient and discussion of the patient with the admitting physicians. Sepsis Criteria SIRS Criteria (2 or more): Heart rate over 90, RR > 20 or PaCO2 < 32, WBC > 33946, < 4000 or > 10% bands Sepsis Criteria (SIRS+source): Infect source susp/known Physician Communication Physician Communication The patient's case including history, pertinent physical examination findings, and laboratory studies were discussed with Dr. Stephenson. It was agreed that the patient would be admitted to the [facility] service. Diagnosis Primary Impression: Pneumonia Qualified Codes: J18.9 - Pneumonia, unspecified organism Additional Impressions: UTI (urinary tract infection) Qualified Codes: N39.0 - Urinary tract infection, site not specified Sepsis Qualified Codes: A41.9 - Sepsis, unspecified organism Altered mental status Qualified Codes: R41.0 - Disorientation, unspecified Admitting Information Admitting Physician Requests: Admit Elizabeth Rosario MD Sep 10, 2017 23:42
[2017-09-10 23:46] VITALS: RESP 28
[2017-09-10 23:53] LABS: AUTOMATED NEUTROPHIL # 19.7 TH/MM3 (1.8-7.7); BASOPHIL # 0.2 TH/MM3 (0-0.2); BASOPHIL % 0.6 % (0.0-2.0); EOSINOPHIL % 0.2 % (0.0-4.0); HEMATOCRIT 47.5 % (35.0-46.0); HEMOGLOBIN 16.3 GM/DL (11.6-15.3); LYMPHOCYTE # 2.9 TH/MM3 (1.0-4.8); MEAN CELL VOLUME 90.5 FL (80.0-100.0); MEAN CORPUSCULAR HGB CONC 34.2 % (32.0-36.0); MEAN PLATELET VOLUME 7.1 FL (7.0-11.0); MONO % 5.6 % (0.0-8.0); MONOCYTE # 1.3 TH/MM3 (0-0.9); NEUT % 81.6 % (16.0-70.0); PLATELET COUNT 318 TH/MM3 (150-450); RED BLOOD COUNT 5.26 MIL/MM3 (4.00-5.30); RED CELL DISTRIBUTION WIDTH 14.4 % (11.6-17.2); WHITE BLOOD COUNT 24.1 TH/MM3 (4.0-11.0)
[2017-09-10 23:54] VITALS: O2SAT 96
[2017-09-10 23:59] LABS: BACTERIA, URINE MANY /hpf; BILIRUBIN, URINE NEG (NEG); BLOOD, URINE MOD (NEG); GLUCOSE,URINE NEG (NEG); KETONE, URINE NEG (NEG); MUCUS URINE FEW /lpf (OCC); NITRITE,URINE POS (NEG); PH, URINE 6.5 (5.0-8.5); SQUAMOUS EPITHELIAL CELL URINE 2 /hpf (0-5); URINE COLOR YELLOW (YELLW/STRAW); URINE LEUKOCYTE ESTERASE NEG (NEG)
[2017-09-11] VITALS (27 sets, daily range): BP systolic 113–136; BP diastolic 59–81; PULSE 79–106; RESP 16–32; TEMP 97.5–99.3; O2SAT 92–98
[2017-09-11] MEDS ORDERED: cefTRIAXone INJ 1,000 MG in SODIUM CHLORIDE 0.9% INJ 100 ML IV ONE ×2
[2017-09-11] MEDS ORDERED: SODIUM CHLORIDE 0.9% FLUSH 10 ML FLUSH IVF PRN
[2017-09-11 00:05] LABS: ALBUMIN 3.5 GM/DL (3.4-5.0); ALT (GPT) 14 U/L (10-53); AST (GOT) 7 U/L (15-37); BICARBONATE 27.3 MEQ/L (21.0-32.0); BLOOD UREA NITROGEN 14 MG/DL (7-18); CALCIUM 8.4 MG/DL (8.5-10.1); CHLORIDE 95 MEQ/L (98-107); CREATININE 0.59 MG/DL (0.50-1.00); GLOMERULAR FILTRATION RATE 100 ML/MIN (>89); GLUCOSE,RANDOM 148 MG/DL (74-106); MAGNESIUM 1.6 MG/DL (1.5-2.5); SODIUM (NA) 134 MEQ/L (136-145)
--- NOTE | 2017-09-11 00:07 | RADRPT ---
EXAM DATE: 09/10/2017 11:47 PM EDT AGE/SEX: 72 years / Female INDICATIONS: Respiratory distress. CLINICAL DATA: This is the patient's initial encounter. Patient reports that signs and symptoms have been present for 1 day and indicates a pain score of 0/10. MEDICAL/SURGICAL HISTORY: Asthma. Chronic obstructive pulmonary disease. Hypertension. None. COMPARISON: [facility] [place], CHEST SINGLE AP, 06/25/2016. . FINDINGS: Single AP view the chest. Mild bilateral interstitial opacity and pulmonary vasculature indistinctnes s suggesting pulmonary edema. No evidence of pleural effusion or pneumothorax. Cardiomediastinal silh ouette within normal limits. CONCLUSION: Mild bilateral interstitial pulmonary opacity likely representing pulmonary edema. Electronically signed by: Karlo Black MD 09/11/2017 12:06 AM EDT
[2017-09-11 00:08] LABS: ALKALINE PHOSPHATASE 120 U/L (45-117); TOTAL BILIRUBIN ADULT 0.8 MG/DL (0.2-1.0); TROPONIN I LESS THAN 0.02 NG/ML (0.02-0.05)
[2017-09-11 00:14] LABS: INTERNATIONAL NORMALIZED RATIO 1.1 RATIO; PROTHROMBIN TIME - PATIENT 10.9 SEC (9.8-11.6)
[2017-09-11] MEDS: RESP: ALBUTEROL 2.5 MG/IPRATROPIUM 0.5 MG NEB (SCH) INH ×6 (00:42→21:10)
[2017-09-11] MEDS ORDERED: AZITHROMYCIN INJ 500 MG in SODIUM CHLOR 0.9% 250 ML INJ 250 ML IV ONE (01:00)
[2017-09-11] MEDS ORDERED: FUROSEMIDE 40 MG/4 ML VIAL IV PUSH ONE (01:45)
[2017-09-11] MEDS ORDERED: SODIUM CHLORIDE 0.9% FLUSH 10 ML FLUSH IV FLUSH PRN (02:15)
[2017-09-11] MEDS ORDERED: RESP: ALBUTEROL 2.5 MG/IPRATROPIUM 0.5 MG NEB (PRN) INH (02:15)
[2017-09-11] MEDS ORDERED: ACETAMINOPHEN 325 MG TAB PO PRN (02:15)
[2017-09-11] MEDS ORDERED: methylPREDNISolone SOD SUCC 125 MG/2 ML VIAL IV PUSH ONE (03:00)
--- NOTE | 2017-09-11 03:03 | HHI.HP ---
HPI Service [facility] Primary Care Physician Unknown Admission Diagnosis Pneumonia, UTI, Sepsis Diagnoses: Chief Complaint: Shortness of breath Travel History International Travel<30 Days: No Contact w/Intl Traveler <30 Da: No Traveled to Known Affected Are: No History of Present Illness Ms. Matthews is a 72-year-old female with a history of hypertension, COPD, and polymyalgia rheumatica who presented to the emergency room on 09/10/2017 for evaluation of progressively worsening shortness of breath, generalized weakness , congestion, and fever. Patient is found to have hypercapnic respiratory failure related to COPD exacerbation, suspected pneumonia, and UTI and is admitted under the hospitalist service for medical management. The patient is seen on the [facility]. She is on BiPAP but is able to answer questions , though at times, she seems to have some confusion. She states for the past 2- 3 days she has been suffering from worsening shortness of breath. She reports chills and fevers though she is unable to tell me what her highest temperature is. She denies any associated chest pain, nausea, vomiting, or diarrhea. She demonstrates some confusion during history taking and has some limited participation secondary to BiPAP, drowsiness, and exertional respiratory effort through conversation. Review of Systems Except as stated in HPI: all other systems reviewed are Neg Past Family Social History Past Medical History Hypertension COPD: Asthma, emphysema Polymyalgia rheumatica . Past Surgical History Cholecystectomy Resection of colon -the patient could not tell me why her colon was resected Hysterectomy Tonsillectomy . Reported Medications Reported Meds & Active Scripts Active Oxygen tank (Oxygen) 1 Ea Tank 2 Liter SALLY.CANULA CONTINUOUS Oxygen Concentrator Portable Gaseous 2 L/min via Nasal Cannula Continuous For 99 months Combivent Respimat Inh (Ipratropium-Albuterol Inh) 20-100 Detention/Act Aero 1 Puff INH QID wean off by your primary care physician. Ventolin Hfa 18 GM Inh (Albuterol Sulfate) 90 Mcg/Act Aer 2 Puff INH Q4H PRN Levaquin (Levofloxacin) 750 Mg Tab 750 Mg PO DAILY Prednisone 20 Mg Tab 20 Mg PO DIRECTED 40 MG twice a day x 3 days, then 20 MG daily x 3 days, then 10 MG daily x 3 days Nifedical XL (Nifedipine) 60 Mg Tab 60 Mg PO DAILY Aspirin EC (Aspirin) 81 Mg Tabdr 81 Mg PO DAILY Reported Anoro Ellipta Inh (Umeclidinium/Vilanterol) 62.5-25 Mcg/Act Aero 1 Puff INH DAILY Metoprolol Tartrate 25 Mg Tab 25 Mg PO Q12HR Prednisone 2.5 Mg Tab 2.5 Mg PO QID Premarin (Estrogens Conjugated) 1.25 Mg Tab 1.25 Mg PO DAILY Clonidine (Clonidine HCl) 0.1 Mg Tab 0.1 Mg PO TID . 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 Social History Tobacco: Smokes 2 packs of cigarettes per day "forever" Alcohol: Denies Illicit Drugs: Denies . Physical Exam Vital Signs Vital Signs Date Time Temp Pulse Resp B/P (MAP) Pulse Ox O2 Delivery O2 Flow Rate FiO2 09/11/17 02:13 09/11/17 01:08 106 32 133/81 (98) 95 BiPAP 40 09/11/17 00:55 95 40 09/10/17 23:54 96 Simple Mask 7.00 09/10/17 23:46 28 09/10/17 23:23 99.4 122 32 132/86 (101) 89 Physical Exam GENERAL: This is a chronically ill appearing elderly female patient, in mild respiratory distress on BiPAP. SKIN: Multiple areas of bruising/papular purple skin lesions noted - patient reports this is related to her polymyalgia rheumatica. HEAD: Atraumatic. Normocephalic. EYES: No scleral icterus. No injection or drainage. ENT: Nose without bleeding, purulent drainage. NECK: Trachea midline. No JVD.. CARDIOVASCULAR: Tachycardic rate and rhythm without murmurs, gallops, or rubs. RESPIRATORY: Scattered expiratory wheezing throughout lung encarnacion with diminished bibasilar lung sounds; tachypnea GASTROINTESTINAL: Abdomen soft, non-tender, nondistended. No guarding. MUSCULOSKELETAL: Extremities without clubbing, cyanosis. No calf tenderness. NEUROLOGICAL: Drowsy but can be awakened; some confusion noted. . Laboratory Laboratory Tests Test 09/10/17 23:40 09/10/17 23:57 White Blood Count 24.1 Red Blood Count 5.26 Hemoglobin 16.3 Hematocrit 47.5 Mean Corpuscular Volume 90.5 Mean Corpuscular Hemoglobin 31.0 Mean Corpuscular Hemoglobin Concent 34.2 Red Cell Distribution Width 14.4 Platelet Count 318 Mean Platelet Volume 7.1 Neutrophils (%) (Auto) 81.6 Lymphocytes (%) (Auto) 12.0 Monocytes (%) (Auto) 5.6 Eosinophils (%) (Auto) 0.2 Basophils (%) (Auto) 0.6 Neutrophils # (Auto) 19.7 Lymphocytes # (Auto) 2.9 Monocytes # (Auto) 1.3 Eosinophils # (Auto) 0.0 Basophils # (Auto) 0.2 CBC Comment DIFF FINAL Differential Comment Prothrombin Time 10.9 Prothromb Time International Ratio 1.1 Activated Partial Thromboplast Time 23.8 Urine Color YELLOW Urine Turbidity HAZY Urine pH 6.5 Urine Specific [place] 1.019 Urine Protein 100 Urine Glucose (UA) NEG Urine Ketones NEG Urine Occult Blood MOD Urine Nitrite POS Urine Bilirubin NEG Urine Urobilinogen LESS THAN 2.0 Urine Leukocyte Esterase NEG Urine RBC 21 Urine WBC 3 Urine Squamous Epithelial Cells 2 Urine Bacteria MANY Urine Mucus FEW Microscopic Urinalysis Comment CULTURE INDICATED Blood Urea Nitrogen 14 Creatinine 0.59 Random Glucose 148 Total Protein 8.0 Albumin 3.5 Calcium Level 8.4 Magnesium Level 1.6 Alkaline Phosphatase 120 Aspartate Amino Transf (AST/SGOT) 7 Alanine Aminotransferase (ALT/SGPT) 14 Total Bilirubin 0.8 Sodium Level 134 Potassium Level 3.7 Chloride Level 95 Carbon Dioxide Level 27.3 Anion Gap 12 Estimat Glomerular Filtration Rate 100 Lactic Acid Level 0.9 Total Creatine Kinase 36 Troponin I LESS THAN 0.02 C-Reactive Protein 12.30 B-Type Natriuretic Peptide 33 Lipase 52 Blood Gas Puncture Site RT RADIAL Blood Gas Patient Temperature 98.6 Blood Gas HCO3 28 Blood Gas Base Excess 3.0 Blood Gas Oxygen Saturation 95 Arterial Blood pH 7.33 Arterial Blood Partial Pressure CO2 55 Arterial Blood Partial Pressure O2 120 Arterial Blood Oxygen Content 21.6 Arterial Blood Carboxyhemoglobin 2.1 Arterial Blood Methemoglobin 1.0 Blood Gas Hemoglobin 16.1 Oxygen Delivery Device SM Blood Gas Liter Flow 7 Date/Time Source Procedure Growth Status 09/10/17 23:40 Blood Peripheral Aerobic Blood Culture Pending Received 09/10/17 23:40 Blood Peripheral Anaerobic Blood Culture Pending Received 09/10/17 23:40 Urine Random Urine Urine Culture Pending Received Result Diagram: 09/10/17 2340 09/10/17 2340 Imaging Last Impressions Chest X-Ray 09/10/17 2334 Signed Impressions: CONCLUSION: Mild bilateral interstitial pulmonary opacity likely representing pulmonary zoya ma. . Caprini VTE Risk Assessment Caprini VTE Risk Assessment: Mod/High Risk (score >= 2) Caprini Risk Assessment Model Point Value = 1 Point Value = 2 Point Value = 3 Point Value = 5 Age 41-60 Minor surgery BMI > 25 kg/m2 Swollen legs Varicose veins or History of unexplained or recurrent spontaneous Oral contraceptives or hormone replacement Sepsis (< 1 month) Serious lung disease, including pneumonia (< 1 month) Abnormal pulmonary function Acute myocardial infarction Congestive heart failure (< 1 month) History of inflammatory bowel disease Medical patient at bed rest Age 61-74 Arthroscopic surgery Major open surgery (> 45 min) Laparoscopic surgery (> 45 min) Malignancy Confined to bed (> 72 hours) Immobilizing plaster cast Central venous access Age >= 75 History of VTE Family history of VTE Factor V Leiden Prothrombin [id number] Lupus anticoagulant Anticardiolipin antibodies Elevated serum homocysteine Heparin-induced thrombocytopenia Other congenital or acquired thrombophilia Stroke (< 1 month) Elective arthroplasty Hip, pelvis, or leg fracture Acute spinal cord injury (< 1 month) Prophylaxis Regimen Total Risk Factor Score Risk Level Prophylaxis Regimen 0-1 Low Early ambulation 2 Moderate Order ONE of the following: *Sequential Compression Device (SCD) *Heparin 5000 units SQ BID 3-4 Higher Order ONE of the following medications: *Heparin 5000 units SQ TID *Enoxaparin/Lovenox 40 mg SQ daily (WT < 150 kg, CrCl > 30 mL/min) *Enoxaparin/Lovenox 30 mg SQ daily (WT < 150 kg, CrCl > 10-29 mL/min) *Enoxaparin/Lovenox 30 mg SQ BID (WT < 150 kg, CrCl > 30 mL/min) AND/OR *Sequential Compression Device (SCD) 5 or more Highest Order ONE of the following medications: *Heparin 5000 units SQ TID (Preferred with Epidurals) *Enoxaparin/Lovenox 40 mg SQ daily (WT < 150 kg, CrCl > 30 mL/min) *Enoxaparin/Lovenox 30 mg SQ daily (WT < 150 kg, CrCl > 10-29 mL/min) *Enoxaparin/Lovenox 30 mg SQ BID (WT < 150 kg, CrCl > 30 mL/min) AND *Sequential Compression Device (SCD) Assessment and Plan Assessment and Plan Ms. Matthews is a 72-year-old female with a history of hypertension, COPD, and polymyalgia rheumatica who presented to the emergency room on 09/10/2017 for evaluation of progressively worsening shortness of breath, generalized weakness , congestion, and fever. Patient is found to have respiratory failure related to COPD exacerbation, suspected pneumonia, and UTI and is admitted under the hospitalist service for medical management. Hypercapnic respiratory failure COPD exacerbation versus pneumonia - ABGs on admission demonstrate PCO2 of 55 - Solu-Medrol 125 mg IV now then 40 mg IV every 6 hours - Duo nebulizers every 6 hours scheduled and every 4 hours as needed shortness of breath/wheezing - Antibiotics: Ceftriaxone 1 g IV every 24 hours and azithromycin 500 mg IV every 24 hours - BiPAP for now -plan to wean off - Repeat ABGs in a.m. - Lactic acid 0.9 UTI - Antibiotics as per above - Await results of urine culture and blood cultures and adjust treatments as indicated Awaiting completion of medication reconciliation to continue patient's home medications DVT prophylaxis - Lovenox 40 mg subcu every 24 hours Discussed Condition With Patient, RN, and Dr. Stephenson . Physician Certification 2 Midnight Certification Type: Admission for Inpatient Services Order for Inpatient Services The services are ordered in accordance with Medicare regulations or non- Medicare payer requirements, as applicable. In the case of services not specified as inpatient-only, they are appropriately provided as inpatient services in accordance with the 2-midnight benchmark. Estimated LOS (days): 4 days is the estimated time the patient will need to remain in the hospital, assuming treatment plan goals are met and no additional complications. Post-Hospital Plan: Not yet determined Tatianna Locke Sep 11, 2017 03:03
[2017-09-11] MEDS: methylPREDNISolone SOD SUCC 40 MG/1 ML VIAL IV PUSH SCH ×4 (05:37→23:30)
[2017-09-11] MEDS: ENOXAPARIN SODIUM 40 MG/0.4 ML SYRINGE SQ SCH (05:37)
[2017-09-11] MEDS: SODIUM CHLORIDE 0.9% FLUSH 10 ML FLUSH IV FLUSH SCH ×2 (09:00→23:30)
--- NOTE | 2017-09-11 09:07 | EKG ---
Date Performed: 09/10/2017 Time Performed: 22:25:22 PTAGE: 72 years EKG: SINUS TACHYCARDIA WITH SHORT CO INTERVAL MODERATE ST DEPRESSION ABNORMAL ECG PREVIOUS TRACING : 06/25/2016 04.10 DOCTOR: Renzo Carranza Interpretating Date/Time 09/11/2017 09:06:06
[2017-09-11] MEDS: AZITHROMYCIN INJ 500 MG in SODIUM CHLOR 0.9% 250 ML INJ 250 ML IV SCH (23:29)
[2017-09-11] MEDS: cefTRIAXone INJ 1,000 MG in SODIUM CHLORIDE 0.9% INJ 100 ML IV SCH (23:29)
[2017-09-12] VITALS (17 sets, daily range): BP systolic 122–148; BP diastolic 69–80; PULSE 77–108; RESP 18–22; TEMP 98; O2SAT 92–98
[2017-09-12] MEDS: RESP: ALBUTEROL 2.5 MG/IPRATROPIUM 0.5 MG NEB (SCH) INH ×4 (02:39→20:49)
[2017-09-12] MEDS: ENOXAPARIN SODIUM 40 MG/0.4 ML SYRINGE SQ SCH (06:00)
[2017-09-12] MEDS: methylPREDNISolone SOD SUCC 40 MG/1 ML VIAL IV PUSH SCH ×3 (06:00→17:44)
[2017-09-12 07:05] LABS: AUTOMATED NEUTROPHIL # 19.7 TH/MM3 (1.8-7.7); BASOPHIL # 0.1 TH/MM3 (0-0.2); BASOPHIL % 0.3 % (0.0-2.0); HEMATOCRIT 43.7 % (35.0-46.0); HEMOGLOBIN 14.4 GM/DL (11.6-15.3); LYMPH % 3.1 % (9.0-44.0); LYMPHOCYTE # 0.6 TH/MM3 (1.0-4.8); MEAN CELL VOLUME 93.4 FL (80.0-100.0); MEAN CORPUSCULAR HEMOGLOBIN 30.6 PG (27.0-34.0); MEAN CORPUSCULAR HGB CONC 32.8 % (32.0-36.0); MEAN PLATELET VOLUME 7.6 FL (7.0-11.0); MONO % 3.3 % (0.0-8.0); MONOCYTE # 0.7 TH/MM3 (0-0.9); NEUT % 93.3 % (16.0-70.0); PLATELET COUNT 299 TH/MM3 (150-450); RED BLOOD COUNT 4.68 MIL/MM3 (4.00-5.30); RED CELL DISTRIBUTION WIDTH 14.6 % (11.6-17.2)
[2017-09-12 07:15] LABS: ALBUMIN 2.8 GM/DL (3.4-5.0); AST (GOT) LESS THAN 3 U/L (15-37); BICARBONATE 27.5 MEQ/L (21.0-32.0); BLOOD UREA NITROGEN 23 MG/DL (7-18); CALCIUM 9.4 MG/DL (8.5-10.1); CHLORIDE 99 MEQ/L (98-107); CREATININE 0.66 MG/DL (0.50-1.00); GLOMERULAR FILTRATION RATE 88 ML/MIN (>89); GLUCOSE,RANDOM 174 MG/DL (74-106); SODIUM (NA) 138 MEQ/L (136-145)
[2017-09-12 07:18] LABS: ALKALINE PHOSPHATASE 99 U/L (45-117); ALT (GPT) 10 U/L (10-53); TOTAL BILIRUBIN ADULT 0.2 MG/DL (0.2-1.0); TOTAL PROTEIN 7.1 GM/DL (6.4-8.2)
[2017-09-12] MEDS: SODIUM CHLORIDE 0.9% FLUSH 10 ML FLUSH IV FLUSH SCH (09:00)
--- NOTE | 2017-09-12 12:45 | HHI.PR ---
Subjective Remarks Improvement through time on treatments. Lethargy and confusion have resolved indicating resolution of hypercarbia. Patient is educated on hypercarbia and risk factors. She is still needing oxygen in her present state. Objective Vital Signs Date Time Temp Pulse Resp B/P (MAP) Pulse Ox O2 Delivery O2 Flow Rate FiO2 09/12/17 11:48 98.0 94 20 136/74 (94) 98 09/12/17 09:42 93 Nasal Cannula 2.00 09/12/17 09:36 98.0 77 22 130/70 (90) 97 09/12/17 08:13 77 09/12/17 05:00 106 09/12/17 04:15 107 18 129/73 (91) 92 09/12/17 04:00 108 09/12/17 04:00 108 09/12/17 03:00 100 09/12/17 02:39 96 40 09/12/17 02:00 96 09/12/17 01:18 95 18 122/69 (86) 93 09/12/17 01:00 92 09/12/17 00:00 100 09/12/17 00:00 89 09/11/17 23:00 88 09/11/17 22:00 82 09/11/17 21:00 88 09/11/17 20:45 85 09/11/17 20:45 88 16 122/71 (88) 93 09/11/17 20:00 92 09/11/17 19:00 88 09/11/17 16:00 92 09/11/17 15:21 94 40 09/11/17 15:15 98.8 79 20 117/64 (81) 98 09/11/17 15:00 86 09/11/17 14:00 92 09/11/17 13:00 90 I/O 09/11/17 09/11/17 09/11/17 09/12/17 09/12/17 09/12/17 07:00 15:00 23:00 07:00 15:00 23:00 Intake Total 410 ml 480 ml 600 ml Output Total 975 ml Balance 410 ml 480 ml -375 ml Intake Oral 60 ml 480 ml 250 ml IV Total 350 ml 350 ml Output Stool Total 975 ml # Voids 1 2 # Bowel Movements 0 Result Diagram: 09/12/17 0436 6/14/18 0436 Objective Remarks GENERAL: NAD, A&Ox3 HEAD: Normocephalic. NECK: Supple, trachea midline. No lymphadenopathy. EYES: No scleral icterus. No injection or drainage. CARDIOVASCULAR: Regular rate and rhythm without murmurs, gallops, or rubs. RESPIRATORY: Breath sounds equal bilaterally. No accessory muscle use. GASTROINTESTINAL: Abdomen soft, non-tender, nondistended. MUSCULOSKELETAL: No cyanosis, or edema. SKIN: Warm and dry. NEURO: No focal neurological deficitis. A/P Problem List: (1) Hypercarbia ICD Code: R06.89 - Other abnormalities of breathing (2) Acute respiratory failure with hypoxia and hypercarbia ICD Code: J96.01 - Acute respiratory failure with hypoxia; J96.02 - Acute respiratory failure with hypercapnia (3) Pneumonia ICD Code: J18.9 - Pneumonia Status: Acute (4) UTI (urinary tract infection) ICD Code: N39.0 - Urinary tract infection, site not specified Status: Acute (5) Sepsis ICD Code: A41.9 - Sepsis Status: Acute (6) Altered mental status ICD Code: R41.82 - Altered mental status, unspecified Status: Acute (7) COPD with acute exacerbation ICD Code: J44.1 - Chronic obstructive pulmonary disease with (acute) exacerbation Status: Acute (8) Hypoxemia ICD Code: R09.02 - Hypoxemia Status: Acute Assessment and Plan 72-year-old female admitted secondary to hypoxia, hypercarbia, and respiratory failure Hypercapnic respiratory failure COPD exacerbation versus pneumonia Hypoxia Respiratory Failure Slowly improving Continue IV Solu-Medrol Continue scheduled duo nebs Continue as needed breathing treatments Continue Rocephin and azithromycin BiPAP as needed Continue oxygen supplementation UTI Continue Rocephin Follow cultures DVT prophylaxis Lovenox Problem Qualifiers (1) Pneumonia: Qualified Codes: J18.9 - Pneumonia, unspecified organism (2) UTI (urinary tract infection): Qualified Codes: N39.0 - Urinary tract infection, site not specified (3) Sepsis: Qualified Codes: A41.9 - Sepsis, unspecified organism (4) Altered mental status: Qualified Codes: R41.0 - Disorientation, unspecified Easton Johnson MD Sep 12, 2017 12:45
[2017-09-12] MEDS: predniSONE 5 MG TAB PO SCH ×3 (12:47→21:00)
[2017-09-12] MEDS: cloNIDine HCL 0.1 MG TAB PO SCH ×2 (12:48→17:17)
[2017-09-12] MEDS: NYSTATIN 100,000 U/GM OINT 15 GM TUBE TOPICAL SCH (14:00)
[2017-09-12] MEDS ORDERED: METOPROLOL TARTRATE 25 MG TAB PO ONE (14:15)
[2017-09-12] MEDS ORDERED: PILL SPLITTER OTHER PRN (18:00)
[2017-09-12] MEDS ORDERED: ESTROGENS CONJUGATED 1.25 MG TAB PO ONE (18:00)
[2017-09-13] VITALS (7 sets, daily range): BP systolic 128–135; BP diastolic 58–74; PULSE 79–101; RESP 17–18; TEMP 97.5–98; O2SAT 91–96
[2017-09-13] MEDS: METOPROLOL TARTRATE 25 MG TAB PO SCH ×3 (00:02→23:07)
[2017-09-13] MEDS: NYSTATIN 100,000 U/GM OINT 15 GM TUBE TOPICAL SCH ×4 (00:02→22:00)
[2017-09-13] MEDS: cefTRIAXone INJ 1,000 MG in SODIUM CHLORIDE 0.9% INJ 100 ML IV SCH ×2 (00:02→23:08)
[2017-09-13] MEDS: methylPREDNISolone SOD SUCC 40 MG/1 ML VIAL IV PUSH SCH ×5 (00:03→23:08)
[2017-09-13] MEDS: SODIUM CHLORIDE 0.9% FLUSH 10 ML FLUSH IV FLUSH SCH ×3 (00:03→23:08)
[2017-09-13] MEDS: AZITHROMYCIN INJ 500 MG in SODIUM CHLOR 0.9% 250 ML INJ 250 ML IV SCH (00:04)
[2017-09-13] MEDS: RESP: ALBUTEROL 2.5 MG/IPRATROPIUM 0.5 MG NEB (SCH) INH ×4 (02:47→22:00)
[2017-09-13 05:04] LABS: AUTOMATED NEUTROPHIL # 19.3 TH/MM3 (1.8-7.7); BASOPHIL % 0.1 % (0.0-2.0); HEMATOCRIT 42.4 % (35.0-46.0); HEMOGLOBIN 13.8 GM/DL (11.6-15.3); LYMPH % 2.7 % (9.0-44.0); LYMPHOCYTE # 0.5 TH/MM3 (1.0-4.8); MEAN CELL VOLUME 93.3 FL (80.0-100.0); MEAN CORPUSCULAR HEMOGLOBIN 30.4 PG (27.0-34.0); MEAN CORPUSCULAR HGB CONC 32.6 % (32.0-36.0); MEAN PLATELET VOLUME 7.2 FL (7.0-11.0); MONO % 3.2 % (0.0-8.0); MONOCYTE # 0.7 TH/MM3 (0-0.9); PLATELET COUNT 307 TH/MM3 (150-450); RED BLOOD COUNT 4.55 MIL/MM3 (4.00-5.30); RED CELL DISTRIBUTION WIDTH 14.2 % (11.6-17.2); WHITE BLOOD COUNT 20.5 TH/MM3 (4.0-11.0)
[2017-09-13 05:27] LABS: ALBUMIN 2.6 GM/DL (3.4-5.0); AST (GOT) 6 U/L (15-37); BICARBONATE 27.3 MEQ/L (21.0-32.0); BLOOD UREA NITROGEN 24 MG/DL (7-18); CALCIUM 9.2 MG/DL (8.5-10.1); CHLORIDE 103 MEQ/L (98-107); CREATININE 0.58 MG/DL (0.50-1.00); GLOMERULAR FILTRATION RATE 102 ML/MIN (>89); GLUCOSE,RANDOM 126 MG/DL (74-106); SODIUM (NA) 141 MEQ/L (136-145)
[2017-09-13 05:29] LABS: ALT (GPT) 13 U/L (10-53)
[2017-09-13 05:31] LABS: ALKALINE PHOSPHATASE 90 U/L (45-117); TOTAL BILIRUBIN ADULT 0.2 MG/DL (0.2-1.0); TOTAL PROTEIN 6.7 GM/DL (6.4-8.2)
[2017-09-13] MEDS: ENOXAPARIN SODIUM 40 MG/0.4 ML SYRINGE SQ SCH (06:00)
[2017-09-13] MEDS: ASPIRIN EC 81 MG TABEC PO SCH (09:00)
[2017-09-13] MEDS: cloNIDine HCL 0.1 MG TAB PO SCH ×3 (09:00→16:40)
[2017-09-13] MEDS: NIFEdipine 60 MG SUSTAINED RELEASE TAB PO SCH (09:00)
[2017-09-13] MEDS: ESTROGENS CONJUGATED 1.25 MG TAB PO SCH (09:00)
[2017-09-13] MEDS: predniSONE 5 MG TAB PO SCH (09:00)
--- NOTE | 2017-09-13 11:31 | HHI.PR ---
Subjective Remarks Patient complains of shortness of breath, heartburn, and poor sleep last night. Blood cultures are growing gram-positive cocci. E. coli grew in urine and is sensitive to Rocephin. Objective Vital Signs Date Time Temp Pulse Resp B/P (MAP) Pulse Ox O2 Delivery O2 Flow Rate FiO2 09/13/17 09:52 2.00 09/13/17 07:53 83 09/13/17 07:48 96 Nasal Cannula 2.00 09/13/17 00:00 79 09/12/17 20:50 96 Nasal Cannula 2.00 09/12/17 20:02 77 09/12/17 15:13 91 09/12/17 15:12 98.0 88 20 148/80 (102) 96 09/12/17 11:48 98.0 94 20 136/74 (94) 98 I/O 09/12/17 09/12/17 09/12/17 09/13/17 09/13/17 09/13/17 07:00 15:00 23:00 07:00 15:00 23:00 Intake Total 600 ml 980 ml 480 ml Output Total 975 ml 600 ml Balance -375 ml 980 ml -120 ml Intake Oral 250 ml 980 ml 480 ml IV Total 350 ml 0 ml Output Urine Total 600 ml Stool Total 975 ml # Voids 3 Result Diagram: 09/13/1744109/13/17441 Objective Remarks GENERAL: NAD, A&Ox3 HEAD: Normocephalic. NECK: Supple, trachea midline. No lymphadenopathy. EYES: No scleral icterus. No injection or drainage. CARDIOVASCULAR: Regular rate and rhythm without murmurs, gallops, or rubs. RESPIRATORY: Breath sounds equal bilaterally. No accessory muscle use. GASTROINTESTINAL: Abdomen soft, non-tender, nondistended. MUSCULOSKELETAL: No cyanosis, or edema. SKIN: Warm and dry. NEURO: No focal neurological deficitis. A/P Problem List: (1) Hypercarbia ICD Code: R06.89 - Other abnormalities of breathing (2) Acute respiratory failure with hypoxia and hypercarbia ICD Code: J96.01 - Acute respiratory failure with hypoxia; J96.02 - Acute respiratory failure with hypercapnia (3) Pneumonia ICD Code: J18.9 - Pneumonia Status: Acute (4) UTI (urinary tract infection) ICD Code: N39.0 - Urinary tract infection, site not specified Status: Acute (5) Sepsis ICD Code: A41.9 - Sepsis Status: Acute (6) Altered mental status ICD Code: R41.82 - Altered mental status, unspecified Status: Acute (7) COPD with acute exacerbation ICD Code: J44.1 - Chronic obstructive pulmonary disease with (acute) exacerbation Status: Acute (8) Hypoxemia ICD Code: R09.02 - Hypoxemia Status: Acute Assessment and Plan 72-year-old female admitted secondary to hypoxia, hypercarbia, and respiratory failure Positive blood cultures May be a false positive Await finalization If bacteremia become suspected will repeat blood cultures and monitor till negative Hypercapnic respiratory failure COPD exacerbation Possible pneumonia Hypoxia Respiratory Failure Slowly improving Continue IV Solu-Medrol Continue scheduled duo nebs Continue as needed breathing treatments Continue Rocephin and azithromycin BiPAP as needed Continue oxygen supplementation UTI Continue Rocephin Cultures show E. coli sensitive to Rocephin DVT prophylaxis Lovenox Problem Qualifiers (1) Pneumonia: Qualified Codes: J18.9 - Pneumonia, unspecified organism (2) UTI (urinary tract infection): Qualified Codes: N39.0 - Urinary tract infection, site not specified (3) Sepsis: Qualified Codes: A41.9 - Sepsis, unspecified organism (4) Altered mental status: Qualified Codes: R41.0 - Disorientation, unspecified Easton Johnson MD Sep 13, 2017 11:31
[2017-09-13] MEDS: diphenhydrAMINE HCL 25 MG CAP PO PRN ×2 (17:32→23:07)
[2017-09-14] VITALS (7 sets, daily range): BP systolic 120–148; BP diastolic 71–79; PULSE 72–97; RESP 17–22; TEMP 96.8–98; O2SAT 91–94
[2017-09-14] MEDS: AZITHROMYCIN INJ 500 MG in SODIUM CHLOR 0.9% 250 ML INJ 250 ML IV SCH (00:34)
[2017-09-14] MEDS: RESP: ALBUTEROL 2.5 MG/IPRATROPIUM 0.5 MG NEB (SCH) INH ×4 (04:00→21:48)
[2017-09-14] MEDS: NYSTATIN 100,000 U/GM OINT 15 GM TUBE TOPICAL SCH ×3 (06:00→20:46)
[2017-09-14] MEDS: methylPREDNISolone SOD SUCC 40 MG/1 ML VIAL IV PUSH SCH ×2 (06:18→11:45)
[2017-09-14] MEDS: ENOXAPARIN SODIUM 40 MG/0.4 ML SYRINGE SQ SCH (06:18)
[2017-09-14] MEDS: ESTROGENS CONJUGATED 1.25 MG TAB PO SCH (08:09)
[2017-09-14] MEDS: SODIUM CHLORIDE 0.9% FLUSH 10 ML FLUSH IV FLUSH SCH ×2 (08:09→20:44)
[2017-09-14] MEDS: ASPIRIN EC 81 MG TABEC PO SCH (08:09)
[2017-09-14] MEDS: UMECLIDINIUM 62.5 MCG/VILANTEROL 25 MCG INHALER INH SCH (08:09)
[2017-09-14] MEDS: METOPROLOL TARTRATE 25 MG TAB PO SCH ×2 (08:09→20:44)
[2017-09-14] MEDS: NIFEdipine 60 MG SUSTAINED RELEASE TAB PO SCH (08:10)
[2017-09-14] MEDS: cloNIDine HCL 0.1 MG TAB PO SCH ×3 (08:11→17:24)
[2017-09-14] MEDS: diphenhydrAMINE HCL 25 MG CAP PO PRN ×2 (08:36→20:49)
--- NOTE | 2017-09-14 08:46 | HHI.PR ---
Subjective Remarks Follow-up UTI, possible pneumonia and gram-positive bacteremia. Patient states he is slowly improving ambulating in the room uses as needed oxygen at home. Objective Vitals Vital Signs Date Time Temp Pulse Resp B/P (MAP) Pulse Ox O2 Delivery O2 Flow Rate FiO2 09/14/17 08:00 97.8 78 22 148/79 (102) 92 09/14/17 04:00 96.8 72 17 126/71 (89) 93 09/14/17 04:00 75 09/14/17 00:00 97 09/14/17 00:00 97.3 76 17 120/77 (91) 91 09/13/17 20:00 81 09/13/17 20:00 97.5 80 17 134/73 (93) 93 09/13/17 18:02 96 Nasal Cannula 2.00 09/13/17 16:00 98.0 101 18 135/58 (83) 91 09/13/17 12:13 128/74 (92) 09/13/17 09:52 2.00 I/O 09/13/17 09/13/17 09/13/17 09/14/17 09/14/17 09/14/17 07:00 15:00 23:00 07:00 15:00 23:00 Intake Total 480 ml 240 ml 340 ml Output Total 600 ml Balance -120 ml 240 ml 340 ml Intake Oral 480 ml 240 ml 240 ml IV Total 100 ml Output Urine Total 600 ml # Voids 1 2 # Bowel Movements 1 Result Diagram: 09/13/17 0442 09/13/17 0442 Imaging Last Impressions Chest X-Ray 09/10/17 6404 Signed Impressions: CONCLUSION: Mild bilateral interstitial pulmonary opacity likely representing pulmonary zoya ma. Objective Remarks GENERAL: NAD, A&Ox3 HEAD: Normocephalic. CARDIOVASCULAR: Regular rate and rhythm without murmurs, gallops, or rubs. RESPIRATORY: Breath sounds equal bilaterally. No accessory muscle use. GASTROINTESTINAL: Abdomen soft, non-tender, nondistended. MUSCULOSKELETAL: No cyanosis, or edema. SKIN: Warm and dry. NEURO: No focal neurological deficits. Procedures none A/P Problem List: (1) COPD exacerbation ICD Code: J44.1 - Chronic obstructive pulmonary disease with (acute) exacerbation Status: Acute Assessment and Plan 72-year-old female admitted secondary to hypoxia, hypercarbia, and respiratory failure Gram-positive bacteremia 2 out of 4 bottles May be a false positive Await finalization Repeat blood cultures patient has already received 3 days of IV antibiotic Acute on chronic hypercapnic respiratory failure. Resolved COPD exacerbation. Improving Possible pneumonia Slowly improving Switch to p.o. steroids Continue scheduled duo nebs Continue as needed breathing treatments Continue Rocephin and azithromycin BiPAP as needed Continue oxygen supplementation UTI with sepsis Continue Rocephin Cultures show E. coli sensitive to Rocephin DVT prophylaxis Lovenox Discharge Planning Not ready for discharge patient with bacteremia Merritt Guerrero MD Sep 14, 2017 08:46
[2017-09-14] MEDS ORDERED: predniSONE 5 MG TAB PO SCH (13:00)
[2017-09-14] MEDS: guaiFENesin E.R. 600 MG TAB PO SCH ×2 (14:03→20:44)
[2017-09-14] MEDS: predniSONE 10 MG TAB PO SCH ×3 (14:03→20:44)
[2017-09-15] VITALS (9 sets, daily range): BP systolic 128–158; BP diastolic 71–93; PULSE 64–100; RESP 17–22; TEMP 97–98.1; O2SAT 92–96
[2017-09-15] MEDS: AZITHROMYCIN INJ 500 MG in SODIUM CHLOR 0.9% 250 ML INJ 250 ML IV SCH ×2 (00:14→23:13)
[2017-09-15] MEDS: cefTRIAXone INJ 1,000 MG in SODIUM CHLORIDE 0.9% INJ 100 ML IV SCH ×2 (00:14→23:13)
[2017-09-15] MEDS: RESP: ALBUTEROL 2.5 MG/IPRATROPIUM 0.5 MG NEB (SCH) INH ×4 (03:35→22:00)
[2017-09-15] MEDS: diphenhydrAMINE HCL 25 MG CAP PO PRN ×3 (04:35→23:12)
[2017-09-15] MEDS: ENOXAPARIN SODIUM 40 MG/0.4 ML SYRINGE SQ SCH (04:36)
[2017-09-15] MEDS: NYSTATIN 100,000 U/GM OINT 15 GM TUBE TOPICAL SCH ×3 (04:37→20:54)
[2017-09-15] MEDS: NIFEdipine 60 MG SUSTAINED RELEASE TAB PO SCH ×2 (07:16→12:32)
[2017-09-15] MEDS: cloNIDine HCL 0.1 MG TAB PO SCH ×3 (07:17→17:18)
[2017-09-15] MEDS: guaiFENesin E.R. 600 MG TAB PO SCH ×2 (08:04→20:54)
[2017-09-15] MEDS: predniSONE 10 MG TAB PO SCH ×4 (08:04→20:54)
[2017-09-15] MEDS: METOPROLOL TARTRATE 25 MG TAB PO SCH ×2 (08:04→20:54)
[2017-09-15] MEDS: ESTROGENS CONJUGATED 1.25 MG TAB PO SCH (08:04)
[2017-09-15] MEDS: ASPIRIN EC 81 MG TABEC PO SCH (08:04)
[2017-09-15] MEDS: SODIUM CHLORIDE 0.9% FLUSH 10 ML FLUSH IV FLUSH SCH ×2 (08:05→20:54)
[2017-09-15] MEDS: UMECLIDINIUM 62.5 MCG/VILANTEROL 25 MCG INHALER INH SCH (08:05)
--- NOTE | 2017-09-15 10:43 | HHI.PR ---
Subjective Remarks Follow-up bacteremia. Does not have any complaints. She has not been ambulating in the hallway. Has oxygen at home as needed Objective Vitals Vital Signs Date Time Temp Pulse Resp B/P (MAP) Pulse Ox O2 Delivery O2 Flow Rate FiO2 09/15/17 08:27 96 Nasal Cannula 3.00 09/15/17 08:00 97.4 73 18 145/93 (110) 95 09/15/17 04:00 97.0 75 17 158/83 (108) 92 09/15/17 04:00 69 09/15/17 00:04 64 09/15/17 00:00 97.1 87 17 128/71 (90) 93 09/14/17 21:30 21 09/14/17 20:00 97.4 90 17 132/75 (94) 92 09/14/17 16:00 98.0 93 20 134/76 (95) 91 09/14/17 12:00 97.5 74 20 135/79 (97) 94 I/O 09/14/17 09/14/17 09/14/17 09/15/17 09/15/17 09/15/17 07:00 15:00 23:00 07:00 15:00 23:00 Intake Total 340 ml 1600 ml 590 ml Balance 340 ml 1600 ml 590 ml Intake Oral 240 ml 1600 ml 240 ml IV Total 100 ml 350 ml # Voids 2 4 2 Result Diagram: 09/13/172 09/13/17 0442 Imaging Last Impressions Chest X-Ray 09/10/17 2334 Signed Impressions: CONCLUSION: Mild bilateral interstitial pulmonary opacity likely representing pulmonary zoya ma. Objective Remarks GENERAL: NAD, A&Ox3 HEAD: Normocephalic. CARDIOVASCULAR: Regular rate and rhythm without murmurs, gallops, or rubs. RESPIRATORY: Breath sounds equal bilaterally. No accessory muscle use. GASTROINTESTINAL: Abdomen soft, non-tender, nondistended. MUSCULOSKELETAL: No cyanosis, or edema. SKIN: Warm and dry. NEURO: No focal neurological deficits. Procedures none A/P Problem List: (1) COPD exacerbation ICD Code: J44.1 - Chronic obstructive pulmonary disease with (acute) exacerbation Status: Acute Assessment and Plan 72-year-old female admitted secondary to hypoxia, hypercarbia, and respiratory failure Gram-positive cocci bacteremia 2 out of 4 bottles May be a false positive Await finalization Repeat blood cultures negative to date Acute on chronic hypercapnic respiratory failure. Resolved COPD exacerbation. Improving Possible pneumonia Slowly improving Switch to p.o. steroids Continue scheduled duo nebs Continue as needed breathing treatments Continue Rocephin and azithromycin BiPAP as needed Continue oxygen supplementation UTI with sepsis Continue Rocephin Cultures show E. coli sensitive to Rocephin DVT prophylaxis Lovenox Discharge Planning Not ready for discharge patient with bacteremia Merritt Guerrero MD Sep 15, 2017 10:43
[2017-09-16] VITALS (9 sets, daily range): BP systolic 117–142; BP diastolic 68–84; PULSE 71–86; RESP 16–20; TEMP 97.2–98; O2SAT 91–94
[2017-09-16] MEDS: RESP: ALBUTEROL 2.5 MG/IPRATROPIUM 0.5 MG NEB (SCH) INH ×3 (04:00→21:06)
[2017-09-16] MEDS: diphenhydrAMINE HCL 25 MG CAP PO PRN ×3 (05:14→21:01)
[2017-09-16] MEDS: NYSTATIN 100,000 U/GM OINT 15 GM TUBE TOPICAL SCH ×3 (05:14→21:02)
[2017-09-16] MEDS: ENOXAPARIN SODIUM 40 MG/0.4 ML SYRINGE SQ SCH (05:14)
[2017-09-16] MEDS: predniSONE 10 MG TAB PO SCH (08:34)
[2017-09-16] MEDS: cloNIDine HCL 0.1 MG TAB PO SCH ×4 (08:34→16:42)
[2017-09-16] MEDS: ESTROGENS CONJUGATED 1.25 MG TAB PO SCH (08:34)
[2017-09-16] MEDS: NIFEdipine 60 MG SUSTAINED RELEASE TAB PO SCH (08:35)
[2017-09-16] MEDS: guaiFENesin E.R. 600 MG TAB PO SCH ×2 (08:35→21:01)
[2017-09-16] MEDS: ASPIRIN EC 81 MG TABEC PO SCH (08:35)
[2017-09-16] MEDS: METOPROLOL TARTRATE 25 MG TAB PO SCH ×2 (08:35→21:01)
[2017-09-16] MEDS: SODIUM CHLORIDE 0.9% FLUSH 10 ML FLUSH IV FLUSH SCH ×2 (08:39→21:01)
[2017-09-16] MEDS: UMECLIDINIUM 62.5 MCG/VILANTEROL 25 MCG INHALER INH SCH (08:40)
--- NOTE | 2017-09-16 10:14 | HHI.PR ---
Subjective Remarks Follow-up COPD exacerbation and gram-positive cocci bacteremia. States she is feeling better wanting to go home advised her to wait for blood culture results Objective Vitals Vital Signs Date Time Temp Pulse Resp B/P (MAP) Pulse Ox O2 Delivery O2 Flow Rate FiO2 09/16/17 09:07 94 Nasal Cannula 3.00 09/16/17 08:00 97.4 73 18 138/84 (102) 94 09/16/17 00:00 74 09/16/17 00:00 97.2 76 20 138/72 (94) 93 09/15/17 20:02 100 09/15/17 20:00 98.1 96 20 131/78 (95) 93 09/15/17 16:00 97.4 77 22 138/89 (105) 92 09/15/17 12:00 97.4 71 18 141/83 (102) 93 I/O 09/15/17 09/15/17 09/15/17 09/16/17 09/16/17 09/16/17 07:00 15:00 23:00 07:00 15:00 23:00 Intake Total 590 ml 1600 ml 590 ml Balance 590 ml 1600 ml 590 ml Intake Oral 240 ml 1600 ml 240 ml IV Total 350 ml 350 ml # Voids 2 3 3 # Bowel Movements 1 Result Diagram: 09/13/17 0442 09/13/17 0442 Imaging Last Impressions Chest X-Ray 09/10/17 2334 Signed Impressions: CONCLUSION: Mild bilateral interstitial pulmonary opacity likely representing pulmonary zoya ma. Objective Remarks GENERAL: NAD, A&Ox3 HEAD: Normocephalic. CARDIOVASCULAR: Regular rate and rhythm without murmurs, gallops, or rubs. RESPIRATORY: Breath sounds equal bilaterally. No accessory muscle use. GASTROINTESTINAL: Abdomen soft, non-tender, nondistended. MUSCULOSKELETAL: No cyanosis, or edema. SKIN: Warm and dry. NEURO: No focal neurological deficits. Procedures none A/P Problem List: (1) COPD exacerbation ICD Code: J44.1 - Chronic obstructive pulmonary disease with (acute) exacerbation Status: Acute Assessment and Plan 72-year-old female admitted secondary to hypoxia, hypercarbia, and respiratory failure Gram-positive cocci bacteremia 2 out of 4 bottles May be a false positive Await finalization, if c/w contamination will DC home today if not tomorrow if repeat blood cultures still negative Acute on chronic hypercapnic respiratory failure. Resolved COPD exacerbation. Improving Possible pneumonia Slowly improving Switch to p.o. steroids, wean down to home dose of 2.5 mg 4 times a day Continue scheduled duo nebs Continue as needed breathing treatments Continue Rocephin and azithromycin pending repeat blood culture BiPAP as needed Continue oxygen supplementation, wean and discontinue keep saturation at least 92%. At home she is on needed oxygen UTI with sepsis Continue Rocephin Cultures show E. coli sensitive to Rocephin DVT prophylaxis Lovenox Discharge Planning Not ready for discharge patient with bacteremia Merritt Guerrero MD Sep 16, 2017 10:14
[2017-09-16] MEDS: predniSONE 5 MG TAB PO SCH ×2 (17:07→21:01)
[2017-09-16] MEDS: cefTRIAXone INJ 1,000 MG in SODIUM CHLORIDE 0.9% INJ 100 ML IV SCH (23:12)
[2017-09-17] VITALS: BP 123/62; PULSE 81; RESP 19; TEMP 97; O2SAT 91
[2017-09-17] MEDS: diphenhydrAMINE HCL 25 MG CAP PO PRN (03:09)
[2017-09-17] MEDS: RESP: ALBUTEROL 2.5 MG/IPRATROPIUM 0.5 MG NEB (SCH) INH ×2 (03:32→09:37)
[2017-09-17 04:00] VITALS: BP 103/66; PULSE 106; RESP 19; TEMP 97.4; O2SAT 91
[2017-09-17] MEDS: ENOXAPARIN SODIUM 40 MG/0.4 ML SYRINGE SQ SCH (06:00)
[2017-09-17] MEDS: NYSTATIN 100,000 U/GM OINT 15 GM TUBE TOPICAL SCH ×2 (06:00→14:15)
[2017-09-17 08:00] VITALS: BP 122/82; PULSE 80; RESP 20; TEMP 98; O2SAT 90
[2017-09-17] MEDS: NIFEdipine 60 MG SUSTAINED RELEASE TAB PO SCH (08:44)
[2017-09-17] MEDS: ASPIRIN EC 81 MG TABEC PO SCH (08:45)
[2017-09-17] MEDS: METOPROLOL TARTRATE 25 MG TAB PO SCH (08:45)
[2017-09-17] MEDS: cloNIDine HCL 0.1 MG TAB PO SCH ×3 (08:45→10:53)
[2017-09-17] MEDS: predniSONE 5 MG TAB PO SCH ×2 (08:45→12:34)
[2017-09-17] MEDS: guaiFENesin E.R. 600 MG TAB PO SCH (08:45)
[2017-09-17] MEDS: ESTROGENS CONJUGATED 1.25 MG TAB PO SCH (08:45)
[2017-09-17] MEDS: SODIUM CHLORIDE 0.9% FLUSH 10 ML FLUSH IV FLUSH SCH (08:46)
[2017-09-17] MEDS: UMECLIDINIUM 62.5 MCG/VILANTEROL 25 MCG INHALER INH SCH (08:46)
[2017-09-17 11:04] VITALS: O2SAT 92
--- NOTE | 2017-09-17 11:34 | HHI.PR ---
Subjective Remarks in no acute distress. no fever. overall doing fine and hoping that she'd go home today. Objective Vitals Vital Signs Date Time Temp Pulse Resp B/P (MAP) Pulse Ox O2 Delivery O2 Flow Rate FiO2 09/17/17 11:04 92 Nasal Cannula 3.00 09/17/17 08:00 98.0 80 20 122/82 (95) 90 09/17/17 04:00 97.4 106 19 103/66 (78) 91 09/17/17 00:00 97.0 81 19 123/62 (82) 91 09/16/17 23:00 82 09/16/17 20:00 97.3 86 19 117/68 (84) 91 09/16/17 16:27 92 Nasal Cannula 3.00 09/16/17 16:00 97.6 71 16 142/75 (97) 93 09/16/17 12:00 98.0 76 18 131/81 (98) 92 09/16/17 11:56 73 I/O 09/16/17 09/16/17 09/16/17 09/17/17 09/17/17 09/17/17 07:00 15:00 23:00 07:00 15:00 23:00 Intake Total 590 ml 720 ml 240 ml 100 ml Balance 590 ml 720 ml 240 ml 100 ml Intake Oral 240 ml 720 ml 240 ml IV Total 350 ml 100 ml # Voids 3 3 2 # Bowel Movements 1 Result Diagram: 09/13/17 0442 09/13/17 0442 Imaging Last Impressions Chest X-Ray 09/10/17 5984 Signed Impressions: CONCLUSION: Mild bilateral interstitial pulmonary opacity likely representing pulmonary zoya ma. Objective Remarks GENERAL: This is a well-nourished, well-developed patient, in no apparent distress. CARDIOVASCULAR: Regular rate and regular rhythm without murmurs, gallops, or rubs. RESPIRATORY: Clear to auscultation. Breath sounds equal bilaterally. No wheezes , rales, or rhonchi. GASTROINTESTINAL: Abdomen soft, non-tender, nondistended. Normal, active bowel sounds MUSCULOSKELETAL: Extremities without clubbing, cyanosis, or edema. NEURO: Alert & Oriented x4 to person, place, time, situation. Moves all ext x4 Procedures none Medications and IVs Inpatient Medications Acetaminophen (Tylenol) 650 mg Q4H PRN PO TEMPERATURE > 101 F; Start 09/11/17 at 02:15 Albuterol/ Ipratropium (Duoneb Neb) 1 ampule Q6HR NEB INH Last administered on 09/15/17at 15:29; Start 09/14/17 at 10:00 Aspirin (Ecotrin Ec) 81 mg DAILY PO Last administered on 09/17/17at 08:45; Start 09/13/17 at 09:00 Azithromycin 500 mg/Sodium Chloride 250 ml @ 250 mls/hr Q24H IV Last administered on 09/15/17at 23:13; Start 09/12/17 at 00:30; Stop 09/16/17 at 13:26 ; Status DC Ceftriaxone Sodium 1000 mg/ Sodium Chloride 100 ml @ 200 mls/hr Q24H IV Last administered on 09/16/17at 23:12; Start 09/12/17 at 00:00 Clonidine (Catapres) 0.1 mg TID PO Last administered on 09/13/17at 09:00; Start 09/12/17 at 13:00 Diphenhydramine HCl (Benadryl) 25 mg Q6H PRN PO Itching Last administered on at 03:09; Start 09/13/17 at 17:15 Enoxaparin Sodium (Lovenox Inj) 40 mg Q24H SQ Last administered on 09/17/17at 06 :00; Start 09/11/17 at 06:00 Estrogens Conjugated (Premarin) 1.25 mg ONCE ONCE PO Last administered on 09/12at 18:00; Start 09/12/17 at 18:00; Stop 09/12/17 at 18:01; Status DC Furosemide (Lasix Inj) 40 mg ONCE ONCE IV PUSH ; Start 09/11/17 at 01:45; Stop 09/11/17 at 01:47; Status DC Guaifenesin (Mucinex Er) 600 mg BID PO Last administered on 09/17/17at 08:45; Start 09/14/17 at 13:00 Methylprednisolone Sodium Succinate (SoluMEDROL INJ) 125 mg ONCE ONCE IV PUSH Last administered on 09/11/17at 03:12; Start 09/11/17 at 03:00; Stop 09/11/17 at 03:01; Status DC Metoprolol Tartrate (Lopressor) 25 mg ONCE ONCE PO Last administered on 14:15; Start 09/12/17 at 14:15; Stop 09/12/17 at 14:16; Status DC Miscellaneous (Pill Splitter) 1 ea UNSCH PRN OTHER SEE LABEL COMMENTS; Start at 18:00 Nifedipine (Procardia Xl) 60 mg DAILY PO Last administered on 09/17/17at 08:44; Start 09/13/17 at 09:00 Nystatin (Mycostatin Oint) 1 applic Q8HR TOPICAL Last administered on at 06:00; Start 09/12/17 at 14:00 Prednisone (Deltasone) 5 mg QID PO Last administered on 09/17/17 08:45; Start 09/16/17 at 18:00 Sodium Chloride (NS Flush) 2 ml BID IV FLUSH Last administered on 09/17/17at 08: 46; Start 09/11/17 at 09:00 A/P Problem List: (1) COPD exacerbation ICD Code: J44.1 - Chronic obstructive pulmonary disease with (acute) exacerbation Status: Acute Assessment and Plan A/P Gram-positive cocci bacteremia 2 out of 4 bottles likely contamination. repeated blood cultures negative. Acute on chronic hypercapnic respiratory failure. Resolved COPD exacerbation. Improving Possible pneumonia Switched to p.o. steroids, wean down to home dose of 2.5 mg 4 times a day Continue scheduled duo nebs Continue as needed breathing treatments continue antibiotics patient is on home oxygen. UTI with sepsis Continue antibiotic. leukocytosis due to steroids- afebrile with repeated negative blood cultures. DVT prophylaxis Lovenox Discharge Planning dc home. HHC was offered but the patient declined. see med list. f/u; pcp. d/w the patient. Nidia Fiore MD Sep 17, 2017 11:34
[2017-09-17] MEDS ORDERED: CEFU1TAB18 PO (11:35)
--- NOTE | 2017-09-17 11:36 | HHI.DS ---
Discharge Summary Admission Date Sep 11, 2017 at 01:20 Discharge Date: Sep 17, 2017 Admitting Diagnosis Pneumonia, UTI, Sepsis (1) COPD exacerbation ICD Code: J44.1 - Chronic obstructive pulmonary disease with (acute) exacerbation Diagnosis: Principal Status: Acute Procedures none Brief History - From Admission Ms. Matthews is a 72-year-old female with a history of hypertension, COPD, and polymyalgia rheumatica who presented to the emergency room on 09/10/2017 for evaluation of progressively worsening shortness of breath, generalized weakness , congestion, and fever. Patient is found to have hypercapnic respiratory failure related to COPD exacerbation, suspected pneumonia, and UTI and is admitted under the hospitalist service for medical management. The patient is seen on the [facility]. She is on BiPAP but is able to answer questions , though at times, she seems to have some confusion. She states for the past 2- 3 days she has been suffering from worsening shortness of breath. She reports chills and fevers though she is unable to tell me what her highest temperature is. She denies any associated chest pain, nausea, vomiting, or diarrhea. She demonstrates some confusion during history taking and has some limited participation secondary to BiPAP, drowsiness, and exertional respiratory effort through conversation. CBC/BMP: 09/13/17 0442 09/13/17 0442 Imaging Last Impressions Chest X-Ray 09/10/17 8194 Signed Impressions: CONCLUSION: Mild bilateral interstitial pulmonary opacity likely representing pulmonary zoya ma. PE at Discharge GENERAL: This is a well-nourished, well-developed patient, in no apparent distress. CARDIOVASCULAR: Regular rate and regular rhythm without murmurs, gallops, or rubs. RESPIRATORY: Clear to auscultation. Breath sounds equal bilaterally. No wheezes , rales, or rhonchi. GASTROINTESTINAL: Abdomen soft, non-tender, nondistended. Normal, active bowel sounds MUSCULOSKELETAL: Extremities without clubbing, cyanosis, or edema. NEURO: Alert & Oriented x4 to person, place, time, situation. Moves all ext x4 Hospital Course Gram-positive cocci bacteremia 2 out of 4 bottles likely contamination. repeated blood cultures negative. Acute on chronic hypercapnic respiratory failure. Resolved COPD exacerbation. Improving Possible pneumonia Switched to p.o. steroids, wean down to home dose of 2.5 mg 4 times a day Continue scheduled duo nebs Continue as needed breathing treatments continue antibiotics patient is on home oxygen. UTI with sepsis Continue antibiotic. Pt Condition on Discharge: Fair Discharge Disposition: Discharge Home Discharge Time: <= 30 minutes Discharge Instructions DIET: Follow Instructions for: Heart Healthy Diet Activities you can perform: Regular-No Restrictions Nidia Fiore MD Sep 17, 2017 11:36
== END 2017-09-17 15:30 | disposition home or self-care (01) | DRG 871 ==
LOC: NEPE 23:20 → NEDA 09-11 01:20 → HCIS 09-11 02:25 → N07B 09-13 14:07
PROVIDERS: ADMIT Internal Medicine; ATTEND Internal Medicine
PROC: 5A09457 Assistance with Respiratory Ventilation, 24-96 Consecutive Hours, Continuous Positive Airway Pressure (ICD-10-PCS; principal; 2017-09-11)
DX: A41.51 Sepsis due to Escherichia coli [E. coli] (principal); J96.21 Acute and chronic respiratory failure with hypoxia; J18.9 Pneumonia, unspecified organism; J96.22 Acute and chronic respiratory failure with hypercapnia; J44.0 Chronic obstructive pulmonary disease with (acute) lower respiratory infection; N39.0 Urinary tract infection, site not specified; J44.1 Chronic obstructive pulmonary disease with (acute) exacerbation; M35.3 Polymyalgia rheumatica; I10 Essential (primary) hypertension; F17.210 Nicotine dependence, cigarettes, uncomplicated; Z88.2 Allergy status to sulfonamides; Z88.5 Allergy status to narcotic agent; Z99.81 Dependence on supplemental oxygen
CPT/HCPCS: 36600; 71045; 76937; 80053; 81001; 82550; 82805; 83605; 83690; 83735; 83880; 84484; 85025; 85610; 85730; 86140; 87040; 87077; 87086; 87186; 87205; 93005; 94002; 94003; 94618; 94640; 94664; 96365; 96375; J0456; J0696; J1650; J2920; J2930; J7050; J7512